=== PATIENT | male | born 1935 | race Caucasian/White ===

== ENCOUNTER 2019-09-16 18:10 | Emergency (ER) | payer MEDICARE ==
[~2019-09-16] VITALS: Ht 187.9 cm; Wt 112.1 kg
--- NOTE | 2019-09-16 18:58 | ED General ---
General Chief Complaint: Neuro-Stroke Like Symptoms Stated Complaint: TROUBLE WALKING/ACTING ABNORMAL History of Present Illness Date Seen by Provider: Sep 16, 2019 Time Seen by Provider: 18:30 Initial Comments Patient is elderly man who lives alone and is having increasing [place] over the last week unable to maneuver like it has been before. Like he has weaker overall does manage to get his meals get up and to and from the bathroom but has become weaker. Timing/Duration: 6-7 Days Severity: Moderate Associated Systoms: No Chest Pain, No Cough, No Diaphoresis, No Fever/Chills, No Headaches, No Loss of Appetite; Malaise; No Nausea/Vomiting; Shortness of Air; No Syncope; Weakness Allergies and Home Medications Allergies Coded Allergies: No Known Drug Allergies (Unverified , 08/20/14) Patient Home Medication List Home Medication List Reviewed: Yes Review of Systems Review of Systems Constitutional: No chills, No dizziness, No fever; malaise, weakness EENTM: No blurred vision, No double vision, No throat pain Respiratory: cough, orthopnea, short of breath, wheezing Cardiovascular: No chest pain, No palpitations Gastrointestinal: No abdominal pain, No constipation, No diarrhea Genitourinary: No dysuria, No frequency; incontinence Musculoskeletal: No back pain, No muscle pain; muscle weakness Skin: No change in color, No lesions Psychiatric/Neurological: Denies Anxiety, Denies Headache, Denies Numbness, Denies Tremors Past Virybyz-Ykkzpa-Madlnj Hx Past Med/Social Hx: Reviewed Nursing Past Med/Soc Hx Patient Social History Recent Foreign Travel: No Contact w/Someone Who Travel: No Physical Abuse: No Sexual Abuse: No Mistreated: No Fear: No Physical Exam Vital Signs Vital Signs - First Documented 09/16/19 18:15 Temp 37.4 Pulse 106 Resp 20 B/P (MAP) 201/94 (129) Pulse Ox 93 O2 Delivery Room Air Capillary Refill : Height, Weight, BMI Height: 6'" Weight: 245lbs. oz. 111.171603mq; BMI Method: General Appearance: No Apparent Distress, WD/WN HEENT: TMs Normal, Pharynx Normal Neck: Full Range of Motion, Normal Inspection Respiratory: Rales, Rhonci, Wheezing Cardiovascular: Irregularly Irregular, JVD, Other (edema) Gastrointestinal: Normal Bowel Sounds, Non Tender, Soft Extremity: Normal Range of Motion, Pedal Edema Neurologic/Psychiatric: Alert, Oriented x3, Normal Mood/Affect, Motor Weakness Skin: Normal Color, Warm/Dry Progress/Results/Core Measures Suspected Sepsis SIRS Temperature: Pulse: Respiratory Rate: Laboratory Tests 09/16/19 18:20: White Blood Count 12.3H Blood Pressure / Mean: Laboratory Tests 09/16/19 18:20: Creatinine 1.13, INR Comment 1.0, Platelet Count 183, Total Bilirubin 1.2H Results/Orders Lab Results Laboratory Tests Test 09/16/19 18:20 09/16/19 19:45 Range/Units White Blood Count 12.3 H 4.3-11.0 10^3/uL Red Blood Count 5.09 4.35-5.85 10^6/uL Hemoglobin 16.2 13.3-17.7 G/DL Hematocrit 49 40-54 % Mean Corpuscular Volume 95 80-99 FL Mean Corpuscular Hemoglobin 32 25-34 PG Mean Corpuscular Hemoglobin Concent 33 32-36 G/DL Red Cell Distribution Width 12.6 10.0-14.5 % Platelet Count 183 130-400 10^3/uL Mean Platelet Volume 12.3 H 7.4-10.4 FL Neutrophils (%) (Auto) 86 H 42-75 % Lymphocytes (%) (Auto) 5 L 12-44 % Monocytes (%) (Auto) 8 0-12 % Eosinophils (%) (Auto) 1 0-10 % Basophils (%) (Auto) 0 0-10 % Neutrophils # (Auto) 10.6 H 1.8-7.8 X 10^3 Lymphocytes # (Auto) 0.6 L 1.0-4.0 X 10^3 Monocytes # (Auto) 1.0 0.0-1.0 X 10^3 Eosinophils # (Auto) 0.1 0.0-0.3 10^3/uL Basophils # (Auto) 0.1 0.0-0.1 10^3/uL Neutrophils % (Manual) 83 % Lymphocytes % (Manual) 6 % Monocytes % (Manual) 8 % Eosinophils % (Manual) 0 % Basophils % (Manual) 0 % Band Neutrophils 3 % Blood Morphology Comment NORMAL Prothrombin Time 14.0 12.2-14.7 SEC INR Comment 1.0 0.8-1.4 Activated Partial Thromboplast Time 30 24-35 SEC Sodium Level 140 135-145 MMOL/L Potassium Level 4.1 3.6-5.0 MMOL/L Chloride Level 103 98-107 MMOL/L Carbon Dioxide Level 22 21-32 MMOL/L Anion Gap 15 H 5-14 MMOL/L Blood Urea Nitrogen 17 7-18 MG/DL Creatinine 1.13 0.60-1.30 MG/DL Estimat Glomerular Filtration Rate > 60 BUN/Creatinine Ratio 15 Glucose Level 122 H 70-105 MG/DL Calcium Level 9.1 8.5-10.1 MG/DL Corrected Calcium 8.8 8.5-10.1 MG/DL Total Bilirubin 1.2 H 0.1-1.0 MG/DL Aspartate Amino Transf (AST/SGOT) 19 5-34 U/L Alanine Aminotransferase (ALT/SGPT) 14 0-55 U/L Alkaline Phosphatase 108 40-136 U/L Troponin I < 0.30 <0.30 NG/ML Pro-B-Type Natriuretic Peptide 1839.0 H <75.0 PG/ML Total Protein 7.6 6.4-8.2 GM/DL Albumin 4.4 3.2-4.5 GM/DL Urine Color YELLOW Urine Clarity CLEAR Urine pH 5.5 5-9 Urine Specific [place] >1.030 1.016-1.022 Urine Protein 3+ H NEGATIVE Urine Glucose (UA) NEGATIVE NEGATIVE Urine Ketones TRACE H NEGATIVE Urine Nitrite NEGATIVE NEGATIVE Urine Bilirubin NEGATIVE NEGATIVE Urine Urobilinogen 0.2 < = 1.0 MG/DL Urine Leukocyte Esterase NEGATIVE NEGATIVE Urine RBC (Auto) 1+ H NEGATIVE Urine RBC 2-5 H /HPF Urine WBC NONE /HPF Urine Squamous Epithelial Cells 0.2 /HPF Urine Renal Epithelial Cells /HPF Urine Crystals NONE /LPF Urine Calcium Oxalate Crystals /LPF Urine Amorphous Sediment /LPF Urine Bacteria TRACE /HPF Urine Casts NONE /LPF Urine Mucus NEGATIVE /LPF Urine Culture Indicated NO My Orders Orders - YASHIRA MARTINEZ JR, MD Cbc And Manual Diff (09/16/19 18:43) Comprehensive Metabolic Panel (09/16/19 18:43) Probnp Fs (09/16/19 18:43) Ekg Tracing (09/16/19 18:43) Chest 1 View Ap/Pa Only (09/16/19 18:43) Protime With Inr (09/16/19 18:43) Partial Thromboplastin Time (09/16/19 18:43) Ct Head Wo (09/16/19 18:43) Troponin I Fs (09/16/19 18:43) Ua Culture If Indicated (09/16/19 19:31) Furosemide Injection (Lasix Injection) (09/16/19 19:45) Medications Given in ED Current Medications Medications Dose Ordered Sig/Zana Route Start Time Stop Time Status Last Admin Dose Admin Furosemide 60 mg ONCE ONCE IVP 09/16/19 19:45 09/16/19 19:46 DC 09/16/19 19:47 60 MG Vital Signs/I&O 09/16/19 18:15 Temp 37.4 Pulse 106 Resp 20 B/P (MAP) 201/94 (129) Pulse Ox 93 O2 Delivery Room Air Capillary Refill : Progress Note : Time: 20:26 Progress Note Discussed with patient and family about not taking medications since October of last year this time feels an A. fib with controlled response but still having some signs of failure to give him 60 of Lasix IV will place him on another 20 mg daily for the next 4 days with a potassium to go along with that each day will follow up with his doctor this week we'll go ahead and get his prescriptions filled back again tomorrow will return for any problems we'll try this as an outpatient but if not successful and admit him. ECG Initial ECG Impression Date: Sep 16, 2019 Initial ECG Impression Time: 18:18 Initial ECG Rate: 95 Initial ECG Rhythm: A Fib/Flutter Initial ECG Impression: Atrial Fibrillation Departure Impression Primary Impression: Atrial fibrillation Qualified Codes: I48.20 - Chronic atrial fibrillation, unspecified Additional Impression: Congestive heart failure Disposition: 01 HOME, SELF-CARE Condition: Stable Departure-Patient Inst. Referrals: ESMER ALBARADO MD (PCP) Primary Care Physician NAOMY EDWARDS MD (Family) Primary Care Physician Patient Instructions: Atrial Fibrillation, Heart Healthy Diet, Heart Failure and Atrial Fibrillation Add. Discharge Instructions: Call PCP office tomorrow and schedule appointment for this week All discharge instructions reviewed with patient and/or family. Voiced understanding. Scripts Potassium Chloride (Potassium Chloride) 20 Meq Tab.er.prt 20 MEQ PO DAILY for 7 Days Prov: YASHIRA MARTINEZ JR, MD 09/16/19 Furosemide (Lasix) 20 Mg Tablet 20 MG PO DAILY for 7 Days, #7 TAB Prov: YASHIRA MARTINEZ JR, MD 09/16/19 YASHIRA MARTINEZ JR, MD Sep 16, 2019 18:58
[2019-09-16 18:59] LABS: BASOPHILS # (AUTO) 0.1 10^3/uL (0.0-0.1); BASOPHILS % (AUTO) 0 % (0-10); EOSINOPHILS # (AUTO) 0.1 10^3/uL (0.0-0.3); EOSINOPHILS % (AUTO) 1 % (0-10); HEMATOCRIT 49 % (40-54); HEMOGLOBIN 16.2 G/DL (13.3-17.7); LYMPHOCYTES # (AUTO) 0.6 X 10^3 (1.0-4.0); LYMPHOCYTES % (AUTO) 5 % (12-44); MEAN CORPUSCULAR HEMOGLOBIN 32 PG (25-34); MEAN CORPUSCULAR HGB CONC 33 G/DL (32-36); MEAN CORPUSCULAR VOLUME 95 FL (80-99); MEAN PLATELET VOLUME 12.3 FL (7.4-10.4); MONOCYTES % (AUTO) 8 % (0-12); NEUTROPHILS # (AUTO) 10.6 X 10^3 (1.8-7.8); NEUTROPHILS % (AUTO) 86 % (42-75); PLATELET COUNT 183 10^3/uL (130-400); RED CELL DISTRIBUTION WIDTH 12.6 % (10.0-14.5); WHITE BLOOD COUNT 12.3 10^3/uL (4.3-11.0)
[2019-09-16 19:22] LABS: ALANINE AMINOTRANSFERASE 14 U/L (0-55); ALBUMIN 4.4 GM/DL (3.2-4.5); ALKALINE PHOSPHATASE 108 U/L (40-136); BILIRUBIN,TOTAL 1.2 MG/DL (0.1-1.0); BUN/CREATININE RATIO 15; CALCIUM 9.1 MG/DL (8.5-10.1); CARBON DIOXIDE 22 MMOL/L (21-32); CHLORIDE 103 MMOL/L (98-107); CREATININE SERUM 1.13 MG/DL (0.60-1.30); GFR ESTIMATED > 60; GLUCOSE 122 MG/DL (70-105); POTASSIUM 4.1 MMOL/L (3.6-5.0); SODIUM 140 MMOL/L (135-145); TOTAL PROTEIN 7.6 GM/DL (6.4-8.2)
[2019-09-16 19:26] LABS: BAND NEUTROPHILS 3 %; BASOPHILS % (MANUAL) 0 %; EOSINOPHILS % (MANUAL) 0 %; LYMPHOCYTES % (MANUAL) 6 %; MONOCYTES % (MANUAL) 8 %; NEUTROPHILS % (MANUAL) 83 %
[2019-09-16 19:27] LABS: RBC MORPH NORMAL
--- NOTE | 2019-09-16 19:27 | Diagnostic Imaging Report ---
PROCEDURE: CT head without contrast. TECHNIQUE: Multiple contiguous axial images were obtained through the brain without the use of intravenous contrast. Auto Exposure Controls were utilized during the CT exam to meet ALARA standards for radiation dose reduction. INDICATION: Cough. Nasal drainage. COMPARISON: None. FINDINGS: No intracranial hemorrhage, mass effect, hydrocephalus or extra-axial fluid collections. Advanced generalized cerebral and cerebellar parenchymal volume loss. Advanced leukoaraiosis. The visualized paranasal sinuses and mastoids are clear. No acute osseous findings. IMPRESSION: No acute intracranial CT findings. Dictated by: Dictated on workstation # [id number]
--- NOTE | 2019-09-16 19:29 | Diagnostic Imaging Report ---
EXAM: CHEST 1 VIEW AP/PA ONLY INDICATION: Cough. Nasal drainage COMPARISON: None. FINDINGS: Cardiomegaly. Normal central pulmonary vascularity. No focal pulmonary opacity, pleural effusion or pneumothorax. Chronic right rib fracture. Calcified aorta. IMPRESSION: Cardiomegaly. No acute cardiopulmonary findings. Dictated by: Dictated on workstation # [id number]
[2019-09-16] MEDS ORDERED: FUROSEMIDE 40 MG/4 ML INJ (LASIX) IVP ONE (19:45)
[2019-09-16 19:57] LABS: BACTERIA,URINE TRACE /HPF; BILIRUBIN,URINE NEGATIVE (NEGATIVE); CLARITY,URINE CLEAR; COLOR,URINE YELLOW; GLUCOSE, URINE (UA) NEGATIVE (NEGATIVE); KETONES,URINE TRACE (NEGATIVE); LEUKOCYTE ESTERASE ,URINE NEGATIVE (NEGATIVE); NITRITE,URINE NEGATIVE (NEGATIVE); PH,URINE 5.5 (5-9); PROTEIN,URINE 3+ (NEGATIVE); SQUAMOUS EPITHELIAL CELL,UR 0.2 /HPF
[2019-09-16] MEDS ORDERED: FURO-125 PO (20:29)
[2019-09-16] MEDS ORDERED: POTA20TA15 PO (20:29)
[2019-09-16 20:32] VITALS: BP 180/100
== END 2019-09-16 20:32 | disposition home or self-care (01) ==
LOC: EDUNIT# 18:10 → ER FS 18:12
DX: I48.91 Unspecified atrial fibrillation (principal); I50.9 Heart failure, unspecified
CPT/HCPCS: 36415; 70450; 71045; 80053; 81000; 83880; 84484; 85007; 85027; 85610; 85730; 93005; 96374

== ENCOUNTER 2020-08-04 11:40 | Emergency (ER) | payer MEDICARE, OTHER ==
[~2020-08-04 11:40] MED LIST: FURO-125 PO; POTA20TA15 PO
[2020-08-04] MEDS ORDERED: LACTATED RINGERS 1,000 ML IV SCH (12:00)
--- NOTE | 2020-08-04 12:03 | ED General ---
General Chief Complaint: General Problems/Pain Stated Complaint: GEN WEAKNESS History of Present Illness Date Seen by Provider: Aug 04, 2020 Time Seen by Provider: 11:55 Initial Comments 84-year-old male presents by private vehicle with complaint of weakness. Patient without any acute concerns. Otherwise he is without complaint of recent illness, fever or chills, chest pain, palpitations, shortness of air, cough or any difficulty breathing. Allergies and Home Medications Allergies Coded Allergies: No Known Drug Allergies (Unverified , 08/20/14) Home Medications Furosemide 20 Mg Tablet, 20 MG PO DAILY Prescribed by: YASHIRA MARTINEZ on 09/16/192028 Potassium Chloride 20 Meq Tab.er.prt, 20 MEQ PO DAILY Prescribed by: YASHIRA MARTINEZ on 09/16/192028 Patient Home Medication List Home Medication List Reviewed: Yes Review of Systems Review of Systems Constitutional: see HPI; No dizziness, No fever; malaise, weakness EENTM: no symptoms reported Respiratory: No cough, No hemoptysis, No orthopnea, No short of breath Cardiovascular: No chest pain, No edema, No palpitations, No syncope Gastrointestinal: No abdominal pain, No constipation, No loss of appetite, No nausea, No vomiting Musculoskeletal: No back pain, No joint pain Skin: No change in color, No rash Psychiatric/Neurological: Denies Headache, Denies Numbness, Denies Paresthesia; Weakness Past Qeaszqw-Jnhfhc-Nmnaex Hx Past Med/Social Hx: Reviewed Nursing Past Med/Soc Hx Patient Social History Alcohol Use: Occasionally Uses Number of Drinks Today: AA Alcohol Beverage of Choice: Beer Recreational Drug Use: No Smoking Status: Never a Smoker 2nd Hand Smoke Exposure: No Recent Hopitalizations: No Seasonal Allergies Seasonal Allergies: No Past Medical History Surgeries: Yes (carotid ) Orthopedic Respiratory: No Cardiac: Yes Atrial Fibrillation, Hypertension Neurological: Yes Stroke Genitourinary: No Gastrointestinal: No Musculoskeletal: No Endocrine: No HEENT: No Cancer: No Psychosocial: No Integumentary: No Physical Exam Vital Signs Vital Signs - First Documented 08/04/20 11:57 Temp 36.4 Pulse 84 Resp 18 B/P (MAP) 111/74 (86) Pulse Ox 100 Capillary Refill : Height, Weight, BMI Height: 6'" Weight: 245lbs. oz. 111.571948uu; 31.00 BMI Method: General Appearance: No Apparent Distress, WD/WN HEENT: PERRL/EOMI, Normal ENT Inspection (except dry mucous membranes) Neck: Normal Inspection, Non Tender, Supple Respiratory: Chest Non Tender, Lungs Clear, Normal Breath Sounds, No Accessory Muscle Use, No Respiratory Distress Cardiovascular: Regular Rate, Rhythm, No Edema, No Gallop, No JVD, No Murmur, Normal Peripheral Pulses Gastrointestinal: Non Tender, Soft Back: No CVA Tenderness, No Vertebral Tenderness Extremity: Normal Capillary Refill, Normal Inspection, Normal Range of Motion, Non Tender, No Calf Tenderness Neurologic/Psychiatric: Alert, Oriented x3, No Motor/Sensory Deficits, Normal Mood/Affect, housing inspectors II-XII Norm as Tested Skin: Normal Color, Warm/Dry Focused Exam Lactate Level 08/04/20 12:00: Lactic Acid Level 1.98 Lactic Acid Level Laboratory Tests Test 08/04/20 12:00 Lactic Acid Level 1.98 MMOL/L (0.50-2.00) Progress/Results/Core Measures Suspected Sepsis SIRS Temperature: Pulse: Respiratory Rate: Laboratory Tests 08/04/20 11:55: White Blood Count 7.1 Blood Pressure / Mean: 08/04/20 12:00: Lactic Acid Level 1.98 Laboratory Tests 08/04/20 11:55: Creatinine 1.47H, Platelet Count 254, Total Bilirubin 1.0 Results/Orders Lab Results Laboratory Tests Test 08/04/20 11:55 08/04/20 12:00 Range/Units White Blood Count 7.1 4.3-11.0 10^3/uL Red Blood Count 5.53 4.35-5.85 10^6/uL Hemoglobin 17.4 13.3-17.7 G/DL Hematocrit 51 40-54 % Mean Corpuscular Volume 93 80-99 FL Mean Corpuscular Hemoglobin 31 25-34 PG Mean Corpuscular Hemoglobin Concent 34 32-36 G/DL Red Cell Distribution Width 12.9 10.0-14.5 % Platelet Count 254 130-400 10^3/uL Mean Platelet Volume 11.1 H 7.4-10.4 FL Immature Granulocyte % (Auto) 1 % Neutrophils (%) (Auto) 75 42-75 % Lymphocytes (%) (Auto) 15 12-44 % Monocytes (%) (Auto) 9 0-12 % Eosinophils (%) (Auto) 0 0-10 % Basophils (%) (Auto) 0 0-10 % Neutrophils # (Auto) 5.3 1.8-7.8 X 10^3 Lymphocytes # (Auto) 1.0 1.0-4.0 X 10^3 Monocytes # (Auto) 0.7 0.0-1.0 X 10^3 Eosinophils # (Auto) 0.0 0.0-0.3 10^3/uL Basophils # (Auto) 0.0 0.0-0.1 10^3/uL Immature Granulocyte # (Auto) 0.0 0.0-0.1 10^3/uL Urine Color DARK YELLOW Urine Clarity CLEAR Urine pH 5.5 5-9 Urine Specific [place] 1.025 H 1.016-1.022 Urine Protein 2+ H NEGATIVE Urine Glucose (UA) NEGATIVE NEGATIVE Urine Ketones TRACE H NEGATIVE Urine Nitrite NEGATIVE NEGATIVE Urine Bilirubin 1+ H NEGATIVE Urine Urobilinogen 0.2 < = 1.0 MG/DL Urine Leukocyte Esterase NEGATIVE NEGATIVE Urine RBC (Auto) TRACE H NEGATIVE Urine RBC RARE /HPF Urine WBC NONE /HPF Urine Squamous Epithelial Cells 0-2 /HPF Urine Crystals NONE /LPF Urine Bacteria TRACE /HPF Urine Casts NONE /LPF Urine Mucus NEGATIVE /LPF Urine Culture Indicated NO Sodium Level 137 135-145 MMOL/L Potassium Level 4.3 3.6-5.0 MMOL/L Chloride Level 100 98-107 MMOL/L Carbon Dioxide Level 22 21-32 MMOL/L Anion Gap 15 H 5-14 MMOL/L Blood Urea Nitrogen 25 H 7-18 MG/DL Creatinine 1.47 H 0.60-1.30 MG/DL Estimat Glomerular Filtration Rate 45 BUN/Creatinine Ratio 17 Glucose Level 116 H 70-105 MG/DL Calcium Level 9.4 8.5-10.1 MG/DL Corrected Calcium 9.8 8.5-10.1 MG/DL Total Bilirubin 1.0 0.1-1.0 MG/DL Aspartate Amino Transf (AST/SGOT) 36 H 5-34 U/L Alanine Aminotransferase (ALT/SGPT) 36 0-55 U/L Alkaline Phosphatase 98 40-136 U/L Troponin I < 0.30 <0.30 NG/ML Total Protein 7.6 6.4-8.2 GM/DL Albumin 3.5 3.2-4.5 GM/DL Serum Alcohol < 10 <10 MG/DL Lactic Acid Level 1.98 0.50-2.00 MMOL/L My Orders Orders - EUSEBIOKAREN L DO Ed Iv/Invasive Line Start (08/04/20 11:58) Ekg Tracing (08/04/20 11:58) Chest 1 View Ap/Pa Only (08/04/20 11:58) Troponin I Fs (08/04/20 11:58) Urinalysis (08/04/20 11:58) Cbc With Automated Diff (08/04/20 11:58) Comprehensive Metabolic Panel (08/04/20 11:58) Alcohol (08/04/20 11:58) Lactic Acid Analyzer (08/04/20 11:58) Ct Head Wo (08/04/20 11:58) Lactated Ringers (Lr 1000 Ml Iv Solution (08/04/20 12:00) Vital Signs/I&O 08/04/20 08/04/20 11:57 14:09 Temp 36.4 Pulse 84 74 Resp 18 20 B/P (MAP) 111/74 (86) 127/82 Pulse Ox 100 100 Capillary Refill : Progress Note : Progress Note 1350h spoke to patients daughter, Ana Head who states that patient has been a little more confused for the past 2 days and walking slower than normal. No concern of illness, fever or chills, cough or shortness of air. She thinks he is not taking his medication regularly. Do not want to pursue transitioning to NH care at this time.....feels it would be pre-mature. He lives alone, but she lives down the street from him and is able to see him regularly to check on him. ECG Initial ECG Impression Date: Aug 04, 2020 Initial ECG Impression Time: 12:10 Initial ECG Rate: 80 Initial ECG Intervals: Normal Initial ECG Impression: Atrial Fibrillation Initial ECG Comparisson: No Previous ECG Available Diagnostic Imaging Diagonstic Imaging: CT Comments Date of Exam:08/04/20 CHEST 1 VIEW AP/PA ONLY EXAM: CHEST 1 VIEW AP/PA ONLY INDICATION: Weakness. Altered mental status. COMPARISON: Chest radiograph 09/16/2019. FINDINGS: Cardiomegaly with normal central pulmonary vascularity. Mild atelectasis or infiltrate in the left lung base. No pleural effusion or pneumothorax. IMPRESSION: 1. Stable cardiomegaly with normal central pulmonary vascularity. 2. Mild atelectasis or infiltrate left lung base. Dictated on workstation # [id number] Dict: 08/04/20 1305 Trans: 08/04/20 1320 [id number] Interpreted by: FLY VIGIL MD Electronically signed by: INDICATION: Weakness. Altered mental status. COMPARISON: Chest radiograph 09/16/2019. FINDINGS: Moderate generalized cerebral and cerebellar parenchymal volume loss. Advanced low-attenuation changes throughout the deep white matter are greatest in the right frontal lobe, stable. No CT evidence of acute territorial infarction. No intracranial hemorrhage, mass effect, hydrocephalus or extra-axial fluid collections. Osseous structures are intact. The paranasal sinuses and mastoids are unremarkable. IMPRESSION: No acute intracranial CT findings. Chronic findings as above Dictated on workstation # [id number] Dict: 08/04/20 1249 Trans: 08/04/20 1254 [id number] Interpreted by: FLY VIGIL MD Electronically signed by: Departure Impression Primary Impression: Weakness Additional Impression: Dehydration Disposition: 01 HOME, SELF-CARE Condition: Stable Departure-Patient Inst. Referrals: NO,LOCAL PHYSICIAN (PCP/Family) Primary Care Physician Patient Instructions: Dehydration, Adult (DC), Generalized Weakness (DC) Add. Discharge Instructions: Followo up with your Primary Care Doctor in 1 week, sooner if not improving. Follow up in the ER if your symptoms progress and you are unable to see your Primary Doctor. All discharge instructions reviewed with patient and/or family. Voiced understanding. KAREN KAPLAN DO Aug 04, 2020 12:03
[2020-08-04 12:10] LABS: BASOPHILS % (AUTO) 0 % (0-10); EOSINOPHILS % (AUTO) 0 % (0-10); HEMATOCRIT 51 % (40-54); HEMOGLOBIN 17.4 G/DL (13.3-17.7); LYMPHOCYTES % (AUTO) 15 % (12-44); MEAN CORPUSCULAR HEMOGLOBIN 31 PG (25-34); MEAN CORPUSCULAR HGB CONC 34 G/DL (32-36); MEAN CORPUSCULAR VOLUME 93 FL (80-99); MEAN PLATELET VOLUME 11.1 FL (7.4-10.4); MONOCYTES % (AUTO) 9 % (0-12); NEUTROPHILS % (AUTO) 75 % (42-75); PLATELET COUNT 254 10^3/uL (130-400); WHITE BLOOD COUNT 7.1 10^3/uL (4.3-11.0)
[2020-08-04 12:11] LABS: MONOCYTES # (AUTO) 0.7 X 10^3 (0.0-1.0); NEUTROPHILS # (AUTO) 5.3 X 10^3 (1.8-7.8)
[2020-08-04 12:23] LABS: CLARITY,URINE CLEAR; COLOR,URINE DARK YELLOW; GLUCOSE, URINE (UA) NEGATIVE (NEGATIVE); KETONES,URINE TRACE (NEGATIVE); NITRITE,URINE NEGATIVE (NEGATIVE); PH,URINE 5.5 (5-9); PROTEIN,URINE 2+ (NEGATIVE)
[2020-08-04 12:24] LABS: BACTERIA,URINE TRACE /HPF; BILIRUBIN,URINE 1+ (NEGATIVE); LEUKOCYTE ESTERASE ,URINE NEGATIVE (NEGATIVE); RBC,URINE RARE /HPF; SQUAMOUS EPITHELIAL CELL,UR 0-2 /HPF
[2020-08-04 12:28] LABS: BUN/CREATININE RATIO 17; CALCIUM 9.4 MG/DL (8.5-10.1); CARBON DIOXIDE 22 MMOL/L (21-32); CHLORIDE 100 MMOL/L (98-107); CREATININE SERUM 1.47 MG/DL (0.60-1.30); GFR ESTIMATED 45; GLUCOSE 116 MG/DL (70-105); POTASSIUM 4.3 MMOL/L (3.6-5.0); SODIUM 137 MMOL/L (135-145)
[2020-08-04 12:29] LABS: ALANINE AMINOTRANSFERASE 36 U/L (0-55); ALBUMIN 3.5 GM/DL (3.2-4.5); ALKALINE PHOSPHATASE 98 U/L (40-136); TOTAL PROTEIN 7.6 GM/DL (6.4-8.2)
--- NOTE | 2020-08-04 12:55 | Diagnostic Imaging Report ---
PROCEDURE: CT head without contrast. TECHNIQUE: Multiple contiguous axial images were obtained through the brain without the use of intravenous contrast. Auto Exposure Controls were utilized during the CT exam to meet ALARA standards for radiation dose reduction. INDICATION: Weakness. Altered mental status. COMPARISON: Chest radiograph 09/16/2019. FINDINGS: Moderate generalized cerebral and cerebellar parenchymal volume loss. Advanced low-attenuation changes throughout the deep white matter are greatest in the right frontal lobe, stable. No CT evidence of acute territorial infarction. No intracranial hemorrhage, mass effect, hydrocephalus or extra-axial fluid collections. Osseous structures are intact. The paranasal sinuses and mastoids are unremarkable. IMPRESSION: No acute intracranial CT findings. Chronic findings as above Dictated by: Dictated on workstation # [id number]
--- NOTE | 2020-08-04 13:26 | Diagnostic Imaging Report ---
EXAM: CHEST 1 VIEW AP/PA ONLY INDICATION: Weakness. Altered mental status. COMPARISON: Chest radiograph 09/16/2019. FINDINGS: Cardiomegaly with normal central pulmonary vascularity. Mild atelectasis or infiltrate in the left lung base. No pleural effusion or pneumothorax. IMPRESSION: 1. Stable cardiomegaly with normal central pulmonary vascularity. 2. Mild atelectasis or infiltrate left lung base. Dictated by: Dictated on workstation # [id number]
[2020-08-04 14:09] VITALS: BP 127/82
== END 2020-08-04 14:11 | disposition home or self-care (01) ==
LOC: EDUNIT# 11:40 → ER FS 11:41
DX: R53.1 Weakness (principal); E86.0 Dehydration
CPT/HCPCS: 36415; 70450; 71045; 80053; 81000; 83605; 84484; 85025; 99284; G0480; 80320

== ENCOUNTER 2020-08-05 20:46 | Observation (INO) | payer MEDICARE ==
[~2020-08-05] VITALS: Ht 185 cm; Wt 106.0 kg
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
[2020-08-05] MEDS ORDERED: NS IV 500 ML 500 ML IV ONE (22:00)
[2020-08-05] MEDS ORDERED: NS 100 ML (IVPB) BAG IV ONE (22:00)
[2020-08-05] MEDS ORDERED: CATHETER FLUSH 10 ML SYR IV PRN (22:00)
[2020-08-05] MEDS ORDERED: IOHEXOL 300 MG/ML 50 ML (OMNIPAQUE 300) VIAL IV ONE (22:00)
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
[2020-08-05 22:16] LABS: BASOPHILS % (AUTO) 0 % (0-10); EOSINOPHILS % (AUTO) 0 % (0-10); HEMATOCRIT 48 % (40-54); LYMPHOCYTES % (AUTO) 9 % (12-44); MEAN CORPUSCULAR HEMOGLOBIN 31 PG (25-34); MEAN CORPUSCULAR HGB CONC 34 G/DL (32-36); MEAN CORPUSCULAR VOLUME 94 FL (80-99); MONOCYTES # (AUTO) 0.7 X 10^3 (0.0-1.0); MONOCYTES % (AUTO) 7 % (0-12); NEUTROPHILS # (AUTO) 8.8 X 10^3 (1.8-7.8); NEUTROPHILS % (AUTO) 83 % (42-75); PLATELET COUNT 285 10^3/uL (130-400); WHITE BLOOD COUNT 10.6 10^3/uL (4.3-11.0)
[2020-08-05 22:25] LABS: INR 1.6 (0.8-1.4); PROTHROMBIN TIME PATIENT 19.5 SEC (12.2-14.7)
[2020-08-05 22:30] LABS: ALBUMIN 3.2 GM/DL (3.2-4.5); BILIRUBIN,TOTAL 0.8 MG/DL (0.1-1.0); CALCIUM 9.2 MG/DL (8.5-10.1); CREATININE SERUM 1.27 MG/DL (0.60-1.30); POTASSIUM 4.2 MMOL/L (3.6-5.0); TOTAL PROTEIN 7.1 GM/DL (6.4-8.2)
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
[2020-08-06 02:23] VITALS: BP 147/87
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
[2020-08-06] MEDS: LACTATED RINGERS 1,000 ML IV SCH ×2 (02:49→11:18)
[2020-08-06] MEDS: KETOROLAC 30 MG/ML VIAL IVP PRN ×2 (02:49→16:11)
[2020-08-06 04:00] VITALS: BP 150/85
[2020-08-06] MEDS ORDERED: FLU QUAD HIGH DOSE 240 MCG/0.7 ML 2020-21 (FLUZONE) IM ONE (06:45)
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
[2020-08-06 12:00] VITALS: BP 137/88
--- NOTE | 2020-08-06 12:30 | NUR ---
DR. PETERSEN ON FLOOR AND INFORMED THAT PATIENT SHOULD HAVE HAD SLING FROM ED. INFORMED IF DAUGHTER CAN TAKE PATIENT AND GET HIM IN WITH OUTPATIENT ORTHO. THIS RN APPLIED SLING TO PATIENT. THIS RN PHONED DAUGHTER AND THERE WAS NO ANSWER. THIS RN TO TRY AGAIN LATER.
[2020-08-06] MEDS ORDERED: RIVA10TA PO (12:45)
[2020-08-06] MEDS ORDERED: GABA-486 PO (12:45)
[2020-08-06] MEDS ORDERED: MTP100TCR PO (12:45)
[2020-08-06] MEDS ORDERED: LISI10TA2 PO (12:45)
--- NOTE | 2020-08-06 13:30 | NUR ---
THIS RN PHONED DAUGHTER TO SEE IF COULD TAKE PATIENT AND LOOK AFTER AND GET HIM IN WITH ORTHO OUTPATIENT. DAUGHTER SAID SHE COULD. THIS RN INFORMED WOULD NOTIFY SOON ORDERS ARE IN PLACE.
--- NOTE | 2020-08-06 15:36 | Discharge Inst-Surgical ---
Discharge Inst-Surgical Depart Medication/Instructions New, Converted or Re-Newed RX: Other (Take tylenol and Ibuprofen at home for pain) Patient Instructions Follow up Appt: Make appointment for 1 week; with Orthopedic surgeon of choice. Instructions: No lifting greater than 20 pounds. No strenuous activity. May shower in 24 hours, no tub bath or soaking. Use incentive spirometer at home as directed. No Smoking KEEP LEFT ARM IN SLING AT ALL TIMES EXCEPT TO SHOWER. Skin/Wound Care: Keep chest wound clean and dry, cover with band-aid. Symptoms to Report: Appetite Changes, Extremity Discoloration, Numbness/Tingling, Swelling Increased, Bleeding Excessive, Eyesight Changes, Pain Increased, Urine Color Change, Constipation(Persistent), Fever over 101 degree F, Pain/Pressure in chest, Urinating Difficulty, Cough Up/Vomit Blood, Heart Beat Irreg/Pounding, Pain/Pressure in jaw, Cramps in feet or legs, Lightheadedness, Pain/Pressure in shoulder, Diarrhea(Persistent), Memory Changes Suddenly, Questions/Concerns, Weight gain consecutive days, Dizziness/Fainting, Nausea/Vomiting, Shortness of Breath, Weight gain over 2 pounds If questions or concerns contact your physician Or seek help at emergency department. Activity Activity as Tolerated: Yes Activity Instructions: Avoid Pulling & Pushing Driving Instructions: No Driving/Refer to Dr. Hernandez Discharge Diet: No Restrictions Diet After 24 Hours: Clear Liquid if Nauseous If Any Problems/Questions/Issu: Contact Your Physician, Go to Emergency Room Skin/Wound Care Infection Signs and Symptoms: Increased Redness, Foul Odor of Wound, Increased Drainage, Skin Itchy or Has a Rash, Increased Swelling, Temperature Above 101 F Bathing Instructions: RAFAEL Flores DO Aug 06, 2020 15:36
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
--- NOTE | 2020-08-06 15:44 | NUR ---
THIS RN NOTIFIED DAUGHTER THAT HAS PUT ORDERS IN AND TO LET ED KNOW WHEN ARRIVE FOR PICKUP.
[2020-08-06 16:00] VITALS: BP 157/79
[2020-08-06 18:03] VITALS: BP 157/79
== END 2020-08-06 18:05 | disposition home or self-care (01) ==
LOC: EDUNIT# 20:46 → ER FS 20:47 → 4TH 08-06 01:30 → INTOOBSV 08-06 01:30
PROVIDERS: ADMIT Surgery; ATTEND Surgery
DX: S21.132A Puncture wound without foreign body of left front wall of thorax without penetration into thoracic cavity, initial encounter (principal); S42.292A Other displaced fracture of upper end of left humerus, initial encounter for closed fracture; I10 Essential (primary) hypertension; I48.91 Unspecified atrial fibrillation; Z79.899 Other long term (current) drug therapy; W34.00XA Accidental discharge from unspecified firearms or gun, initial encounter; Z20.828 Contact with and (suspected) exposure to other viral communicable diseases
CPT/HCPCS: 36415; 70450; 71045; 71260; 72125; 73060; 80053; 85025; 85610; 85730; 99284; G0378; U0002; 87635

== ENCOUNTER → 2020-08-22 | Outpatient (CLI) | payer MEDICARE ==
[~2020-08-22] MED LIST changes: +GABA-486 PO; +LISI10TA2 PO; +MTP100TCR PO; +RIVA10TA PO
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
== END ==
LOC: RAD FS 10:32
PROVIDERS: ATTEND Nurse Practitioner
DX: S42.352D Displaced comminuted fracture of shaft of humerus, left arm, subsequent encounter for fracture with routine healing (principal)
CPT/HCPCS: 73060

== ENCOUNTER → 2020-11-14 | Outpatient (CLI) | payer MEDICARE ==
[~2020-11-14] MED LIST changes: -LISI10TA2 PO; +LISI10TA25 PO
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
== END ==
LOC: RAD FS 15:10
PROVIDERS: ATTEND Nurse Practitioner
DX: S42.352D Displaced comminuted fracture of shaft of humerus, left arm, subsequent encounter for fracture with routine healing (principal); M19.012 Primary osteoarthritis, left shoulder; X58.XXXD Exposure to other specified factors, subsequent encounter
CPT/HCPCS: 73030; 73060

== ENCOUNTER 2020-12-25 11:33 | Emergency (ER) | payer MEDICARE ==
[~2020-12-25] VITALS: Ht 187.9 cm; Wt 112.9 kg
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
[2020-12-25] MEDS ORDERED: AMOX-358 PO (12:00)
[2020-12-25] MEDS ORDERED: TETANUS,DIPTH,PERTUSS P/F (BOOSTRIX) 0.5 ML VIAL IM ONE (12:00)
[2020-12-25] MEDS ORDERED: RABIES IMMUNE GLOBULIN 300 UNIT/ML 5 ML (HyperRAB) IM ONE (12:00)
[2020-12-25] MEDS ORDERED: RABIES VACCINE HUMAN DIPL CELL 1 ML/2.5 UNITS SYR IM ONE (12:00)
[2020-12-25 12:40] VITALS: BP 144/81
== END 2020-12-25 12:40 | disposition home or self-care (01) ==
LOC: EDUNIT# 11:33 → ER FS 11:34
DX: S61.451A Open bite of right hand, initial encounter (principal); I48.91 Unspecified atrial fibrillation; I10 Essential (primary) hypertension; Z86.73 Personal history of transient ischemic attack (TIA), and cerebral infarction without residual deficits; Z23 Encounter for immunization; Z79.899 Other long term (current) drug therapy; Z79.01 Long term (current) use of anticoagulants; W55.51XA Bitten by raccoon, initial encounter
CPT/HCPCS: 99283; A6223; 90375; 90675; 90715

== ENCOUNTER 2020-12-28 10:49 | Outpatient (RCR) | payer MEDICARE ==
[~2020-12-28] VITALS: Ht 187.9 cm; Wt 112.9 kg
[~2020-12-28 10:49] MED LIST changes: +AMOX-358 PO
[2020-12-28 11:04] VITALS: BP 183/83
[2020-12-28] MEDS ORDERED: RABIES VACCINE HUMAN DIPL CELL 1 ML/2.5 UNITS SYR INJ ONE (11:15)
[2021-01-01] MEDS ORDERED: RABIES VACCINE HUMAN DIPL CELL 1 ML/2.5 UNITS SYR INJ ONE (11:15)
[2021-01-08 10:40] VITALS: BP 183/83
[2021-01-08] MEDS ORDERED: RABIES VACCINE HUMAN DIPL CELL 1 ML/2.5 UNITS SYR INJ ONE (11:15)
[2021-01-22 10:32] VITALS: BP 183/83
[2021-01-22] MEDS ORDERED: RABIES VACCINE HUMAN DIPL CELL 1 ML/2.5 UNITS SYR INJ ONE (11:15)
== END 2021-03-28 | disposition home or self-care (01) ==
LOC: SDC 10:49
PROVIDERS: ATTEND Emergency Medicine
DX: Z29.14 Encounter for prophylactic rabies immune globulin (principal); Z20.3 Contact with and (suspected) exposure to rabies; W55.51XA Bitten by raccoon, initial encounter
CPT/HCPCS: 90471 ×2; G0378 ×2; 90675; 96372

== ENCOUNTER 2021-09-10 13:53 | Emergency (ER) | payer MEDICARE ==
[~2021-09-10] VITALS: Ht 187.9 cm; Wt 113.0 kg
[~2021-09-10 13:53] MED LIST changes: +POTA-179 PO; -POTA20TA15 PO
[2021-09-10 14:10] LABS: BASOPHILS % (AUTO) 1 % (0-10); EOSINOPHILS % (AUTO) 0 % (0-10); HEMATOCRIT 37 % (40-54); HEMOGLOBIN 12.2 g/dL (13.3-17.7); LYMPHOCYTES # (AUTO) 0.4 X 10^3 (1.0-4.0); LYMPHOCYTES % (AUTO) 5 % (12-44); MEAN CORPUSCULAR HEMOGLOBIN 30 pg (25-34); MEAN CORPUSCULAR HGB CONC 33 g/dL (32-36); MEAN CORPUSCULAR VOLUME 91 fL (80-99); MEAN PLATELET VOLUME 11.6 fL (9.0-12.2); MONOCYTES # (AUTO) 0.8 X 10^3 (0.0-1.0); MONOCYTES % (AUTO) 10 % (0-12); NEUTROPHILS # (AUTO) 6.8 X 10^3 (1.8-7.8); NEUTROPHILS % (AUTO) 84 % (42-75); PLATELET COUNT 173 10^3/uL (130-400); WHITE BLOOD COUNT 8.2 10^3/uL (4.3-11.0)
[2021-09-10] MEDS ORDERED: cefTRIAXone 1,000 MG VIAL IV ONE (14:15)
[2021-09-10 14:25] LABS: BUN/CREATININE RATIO 19; CARBON DIOXIDE 21 MMOL/L (21-32); CHLORIDE 106 MMOL/L (98-107); CREATININE SERUM 1.08 MG/DL (0.60-1.30); GFR ESTIMATED 65; GLUCOSE 120 MG/DL (70-105); MAGNESIUM 1.8 MG/DL (1.6-2.4); POTASSIUM 4.3 MMOL/L (3.6-5.0); SODIUM 138 MMOL/L (135-145)
[2021-09-10 14:26] LABS: ALANINE AMINOTRANSFERASE 17 U/L (0-55); ALKALINE PHOSPHATASE 141 U/L (40-136); BILIRUBIN,TOTAL 1.8 MG/DL (0.1-1.0); TOTAL PROTEIN 7.2 GM/DL (6.4-8.2)
--- NOTE | 2021-09-10 14:35 | Diagnostic Imaging Report ---
INDICATION: Fever and confusion. TECHNIQUE: Single-view chest at 02:10 p.m. CORRELATION STUDY: 08/05/2020. FINDINGS: Heart size is enlarged. Calcification of the aortic arch. Vasculature is slightly increased. Lung murphy with slightly increased markings at the lung bases but without definitive consolidating infiltrate. IMPRESSION: 1. Cardiac enlargement and borderline vasculature. No definitive pulmonary infiltrate to suggests pneumonia. Dictated by: Dictated on workstation # [id number]
[2021-09-10 15:01] LABS: LYMPHOCYTES % (MANUAL) 12 %; MONOCYTES % (MANUAL) 9 %; NEUTROPHILS % (MANUAL) 79 %
[2021-09-10 15:27] LABS: BACTERIA,URINE TRACE /HPF; BILIRUBIN,URINE NEGATIVE (NEGATIVE); CLARITY,URINE CLEAR; COLOR,URINE YELLOW; GLUCOSE, URINE (UA) NEGATIVE (NEGATIVE); KETONES,URINE NEGATIVE (NEGATIVE); LEUKOCYTE ESTERASE ,URINE NEGATIVE (NEGATIVE); NITRITE,URINE NEGATIVE (NEGATIVE); PH,URINE 5.5 (5-9); PROTEIN,URINE 2+ (NEGATIVE)
--- NOTE | 2021-09-10 15:32 | ED General ---
General Chief Complaint: Fever-Adult/Adol Stated Complaint: AMS Nursing Triage Note: Patient brought to the ED by EMS for chief complaint of disorientation and fever. Per EMS, patient lives with his daughter; daughter states patient woke this morning not acting normally, temperature 101 for EMS. Patient has dementia, oriented to person and place. Patient states he has no complaints and is unsure why he was brought to the ED today. Source of Information: Patient Exam Limitations: No Limitations History of Present Illness Date Seen by Provider: Sep 10, 2021 Time Seen by Provider: 14:15 Initial Comments Patient is an 85-year-old male with history of dementia who lives at home by himself who presents with increased confusion fever 101. Patient is alert and oriented to person and place only. He denies current symptoms and is unsure why he is in the emergency department. Feeling hyper state he is more confused than baseline. Patient is otherwise alert functional and is able to dress himself and still drives. He does have a history of routine alcohol use Timing/Duration: 1-3 Hours Severity: Mild Modifying Factors: improves with Other Associated Systoms: Other Allergies and Home Medications Allergies Coded Allergies: No Known Drug Allergies (Unverified , 08/20/14) Patient Home Medication List Home Medication List Reviewed: Yes Amoxicillin/Potassium Clav (Augmentin 875-125 Tablet) 1 Each Tablet, 1 EACH PO BID Prescribed by: AMBERLY OWENS on 12/25/201199 Furosemide (Lasix) 20 Mg Tablet, 20 MG PO DAILY Prescribed by: YASHIRA MARTINEZ on 09/16/192028 Gabapentin (Gabapentin) 100 Mg Capsule, 100 MG PO Q8H, (Reported) Entered as Reported by: LUCIANA RIVERA on 08/06/20 124 Lisinopril (Lisinopril) 10 Mg Tablet, 10 MG PO DAILY, (Reported) Entered as Reported by: LUCIANA RIVERA on 08/06/20 124 Metoprolol Succinate (Metoprolol Succinate) 100 Mg Tab.er.24h, 100 MG PO BID, (Reported) Entered as Reported by: LUCIANA RIVERA on 08/06/20 124 Potassium Chloride (Potassium Chloride) 20 Meq Tab.er.prt, 20 MEQ PO DAILY Prescribed by: YASHIRA MARTINEZ on 09/16/192028 Rivaroxaban (Xarelto) 10 Mg Tablet, 10 MG PO DAILY, (Reported) Entered as Reported by: LUCIANA Pitts MIGUEL on 08/06/20 8955 Review of Systems Review of Systems Constitutional: see HPI EENTM: see HPI Respiratory: see HPI Cardiovascular: see HPI Gastrointestinal: see HPI Genitourinary: see HPI Musculoskeletal: see HPI Skin: see HPI Psychiatric/Neurological: See HPI Hematologic/Lymphatic: See HPI Immunological/Allergic: see HPI All Other Systems Reviewed Negative Unless Noted: Yes Past Brxcknr-Jczshm-Qnbipc Hx Patient Social History Tobacco Use?: Yes Substance use?: No Alcohol Use?: Yes Alcohol type: Beer Pt feels they are or have been: No Immunizations Up To Date Tetanus Booster (TDap): Unknown Seasonal Allergies Seasonal Allergies: No Past Medical History Surgery/Hospitalization HX: dementia, HTN Surgeries: Yes (Carotid ) Orthopedic Respiratory: No Cardiac: Yes Atrial Fibrillation, Hypertension Neurological: Yes Stroke Genitourinary: No Gastrointestinal: No Musculoskeletal: No Endocrine: No HEENT: No Cancer: No Psychosocial: No Integumentary: No Blood Disorders: No Family Medical History Other Conditions/Hx Physical Exam Vital Signs Vital Signs - First Documented 09/10/21 14:00 Temp 38.2 Pulse 80 Resp 17 B/P (MAP) 162/71 (101) Pulse Ox 95 O2 Delivery Room Air Capillary Refill : Less Than 3 Seconds Height, Weight, BMI Height: 6'" Weight: 245lbs. oz. 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 Norm as Tested Focused Exam Sepsis Stage: Ruled Out Lactate Level 09/10/21 14:03: Lactic Acid Level 0.84 Lactic Acid Level Laboratory Tests Test 09/10/21 14:03 Lactic Acid Level 0.84 MMOL/L (0.50-2.00) Progress/Results/Core Measures Suspected Sepsis SIRS Temperature: Pulse: 80 Respiratory Rate: 17 Laboratory Tests 09/10/21 14:03: White Blood Count 8.2 Blood Pressure 162 /71 Mean: 101 09/10/21 14:03: Lactic Acid Level 0.84 Laboratory Tests 09/10/21 14:03: Creatinine 1.08, Platelet Count 173, Total Bilirubin 1.8H Results/Orders Lab Results Laboratory Tests Test 09/10/21 13:17 09/10/21 14:03 09/10/21 14:09 Range/Units Urine Color YELLOW Urine Clarity CLEAR Urine pH 5.5 5-9 Urine Specific Halsey 1.025 H 1.016-1.022 Urine Protein 2+ H NEGATIVE Urine Glucose (UA) NEGATIVE NEGATIVE Urine Ketones NEGATIVE NEGATIVE Urine Nitrite NEGATIVE NEGATIVE Urine Bilirubin NEGATIVE NEGATIVE Urine Urobilinogen 0.2 < = 1.0 MG/DL Urine Leukocyte Esterase NEGATIVE NEGATIVE Urine RBC (Auto) TRACE-I H NEGATIVE Urine RBC 5-10 H /HPF Urine WBC NONE /HPF Urine Squamous Epithelial Cells 2-5 /HPF Urine Crystals NONE /LPF Urine Bacteria TRACE /HPF Urine Casts NONE /LPF Urine Mucus NEGATIVE /LPF Urine Culture Indicated NO White Blood Count 8.2 4.3-11.0 10^3/uL Red Blood Count 4.11 L 4.30-5.52 10^6/uL Hemoglobin 12.2 L 13.3-17.7 g/dL Hematocrit 37 L 40-54 % Mean Corpuscular Volume 91 80-99 fL Mean Corpuscular Hemoglobin 30 25-34 pg Mean Corpuscular Hemoglobin Concent 33 32-36 g/dL Red Cell Distribution Width 13.9 10.0-14.5 % Platelet Count 173 130-400 10^3/uL Mean Platelet Volume 11.6 9.0-12.2 fL Immature Granulocyte % (Auto) 1 % Neutrophils (%) (Auto) 84 H 42-75 % Lymphocytes (%) (Auto) 5 L 12-44 % Monocytes (%) (Auto) 10 0-12 % Eosinophils (%) (Auto) 0 0-10 % Basophils (%) (Auto) 1 0-10 % Neutrophils # (Auto) 6.8 1.8-7.8 X 10^3 Lymphocytes # (Auto) 0.4 L 1.0-4.0 X 10^3 Monocytes # (Auto) 0.8 0.0-1.0 X 10^3 Eosinophils # (Auto) 0.0 0.0-0.3 10^3/uL Basophils # (Auto) 0.0 0.0-0.1 10^3/uL Immature Granulocyte # (Auto) 0.0 0.0-0.1 10^3/uL Neutrophils % (Manual) 79 % Lymphocytes % (Manual) 12 % Monocytes % (Manual) 9 % Sodium Level 138 135-145 MMOL/L Potassium Level 4.3 3.6-5.0 MMOL/L Chloride Level 106 98-107 MMOL/L Carbon Dioxide Level 21 21-32 MMOL/L Anion Gap 11 5-14 MMOL/L Blood Urea Nitrogen 20 H 7-18 MG/DL Creatinine 1.08 0.60-1.30 MG/DL Estimat Glomerular Filtration Rate 65 BUN/Creatinine Ratio 19 Glucose Level 120 H 70-105 MG/DL Lactic Acid Level 0.84 0.50-2.00 MMOL/L Calcium Level 9.0 8.5-10.1 MG/DL Corrected Calcium 8.5-10.1 MG/DL Magnesium Level 1.8 1.6-2.4 MG/DL Total Bilirubin 1.8 H 0.1-1.0 MG/DL Aspartate Amino Transf (AST/SGOT) 20 5-34 U/L Alanine Aminotransferase (ALT/SGPT) 17 0-55 U/L Alkaline Phosphatase 141 H 40-136 U/L Total Protein 7.2 6.4-8.2 GM/DL Albumin 4.0 3.2-4.5 GM/DL Serum Alcohol < 10 <10 MG/DL Influenza Type A (RT-PCR) Not Detected Not Detecte Influenza Type B (RT-PCR) Not Detected Not Detecte SARS-CoV-2 RNA (RT-PCR) Detected H Not Detecte My Orders [place] - CHUNG ZEPEDA DO Cbc With Automated Diff (09/10/21 13:59) Comprehensive Metabolic Panel (09/10/21 13:59) Lactic Acid Analyzer (09/10/21 13:59) Chest 1 View Ap/Pa Only (09/10/21 13:59) Urinalysis (09/10/21 13:59) Ekg-Prn For Chest Pain Or Rhyt (09/10/21 13:59) Alcohol (09/10/21 13:59) Magnesium (09/10/21 13:59) Ceftriaxone (Rocephin) (09/10/21 14:15) Manual Differential (09/10/21 14:03) Covid 19 Inhouse Test (09/10/21 15:09) Influenza A And B By Pcr (09/10/21 15:09) Isolation Central Supply Req (09/10/21 15:09) Ceftriaxone 1 Gm Pre-Mix (Rocephin 1 Gm (09/10/21 16:15) Prednisone Tablet (Deltasone Tablet) (09/10/21 17:30) Vital Signs/I&O 09/10/21 14:00 Temp 38.2 Pulse 80 Resp 17 B/P (MAP) 162/71 (101) Pulse Ox 95 O2 Delivery Room Air Capillary Refill : Less Than 3 Seconds Blood Pressure Mean: 101 Departure Communication (Admissions) EKG: Atrial fibrillation, with LVH Altered mental status with fever. Covid positive. Vital signs stable without respiratory compromise. Case discussed with patient's daughter who is his emr implementation specialist/medical power of litigation attorney associate. She agrees to supervise him and remain quarantined. Discussed with her signs of symptoms requiring reevaluation and return to the emergency department. I did recommend the Regeneron infusion which the patient's power of litigation attorney associate declined. She status states she will follow-up with PCP for his recommendations. Steroids given. Provide supportive care. Impression Primary Impression: Dementia Additional Impression: COVID Disposition: 01 HOME, SELF-CARE Condition: Stable Departure-Patient Inst. Decision time for Depature: 17:21 Referrals: PHAM MENDIOLA MD (PCP/Family) Primary Care Physician Patient Instructions: Dementia ED, COVID-19 Overview Add. Discharge Instructions: Please encourage fluids daily caloric intake. Continue home medications and take newly prescribed medications as directed. Monitor home O2 saturation level. If oxygen's are persistently lower than 90% return to the emergency department. Contact [facility] PCP tomorrow for a second opinion regarding Regeneron infusion. All discharge instructions reviewed with patient and/or family. Voiced unde rstanding. Scripts Albuterol Sulfate (Proventil Hfa) 6.7 Gm Hfa.aer.ad 2 PUFF INH Q6H for SHORTNESS OF BREATH, #1 EACH Prov: CHUNG ZEPEDA DO 09/10/21 Prednisone (Prednisone) 20 Mg Tab 40 MG PO DAILY, #6 TAB 0 Refills Prov: CHUNG ZEPEDA DO 09/10/21 Doxycycline Hyclate (Doxycycline Hyclate) 100 Mg Tablet 100 MG PO BID, #20 TAB 0 Refills Prov: CHUNG ZEPEDA DO 09/10/21 CHUNG ZEPEDA DO Sep 10, 2021 15:32
[2021-09-10] MEDS ORDERED: cefTRIAXone 1 GM PRE-MIX 50 ML IV ONE (16:15)
[2021-09-10] MEDS ORDERED: DOXY100T2 PO (17:23)
[2021-09-10] MEDS ORDERED: PRD20T PO (17:23)
[2021-09-10] MEDS ORDERED: RT-ALBUINH INH (17:23)
[2021-09-10] MEDS ORDERED: predniSONE 20 MG TAB PO ONE (17:30)
[2021-09-10 17:46] VITALS: BP 172/89
== END 2021-09-10 18:07 | disposition home or self-care (01) ==
LOC: EDUNIT# 13:53 → ER FS 13:54
DX: U07.1 COVID-19 (principal); F03.90 Unspecified dementia, unspecified severity, without behavioral disturbance, psychotic disturbance, mood disturbance, and anxiety; I10 Essential (primary) hypertension; I48.91 Unspecified atrial fibrillation; Z86.73 Personal history of transient ischemic attack (TIA), and cerebral infarction without residual deficits; Z72.0 Tobacco use; Z79.01 Long term (current) use of anticoagulants
CPT/HCPCS: 36415; 71045; 80053; 81000; 83605; 83735; 85007; 85027; 87636; 93005; 99284; G0480; 80320

== ENCOUNTER 2021-12-30 19:05 | Inpatient (IN) | payer MEDICARE ==
[2021-12-30] VITALS (9 sets, daily range): BP systolic 116–163; BP diastolic 55–76
[~2021-12-30] VITALS: Ht 187 cm; Wt 100.0 kg
[~2021-12-30 19:05] MED LIST changes: +DOXY100T2 PO; +PRD20T PO; +RT-ALBUINH INH
[2021-12-30 19:33] LABS: BASOPHILS % (AUTO) 0 % (0-10); EOSINOPHILS % (AUTO) 0 % (0-10); LYMPHOCYTES # (AUTO) 1.1 10^3/uL (1.0-4.0); LYMPHOCYTES % (AUTO) 13 % (12-44); MEAN CORPUSCULAR HEMOGLOBIN 24 pg (25-34); MEAN CORPUSCULAR HGB CONC 29 g/dL (32-36); MEAN CORPUSCULAR VOLUME 82 fL (80-99); MEAN PLATELET VOLUME 11.7 fL (9.0-12.2); MONOCYTES # (AUTO) 0.9 10^3/uL (0.0-1.0); MONOCYTES % (AUTO) 10 % (0-12); NEUTROPHILS # (AUTO) 6.8 10^3/uL (1.8-7.8); NEUTROPHILS % (AUTO) 76 % (42-75); PLATELET COUNT 255 10^3/uL (130-400); WHITE BLOOD COUNT 8.9 10^3/uL (4.3-11.0)
[2021-12-30 19:36] LABS: HEMATOCRIT 17 % (40-54)
[2021-12-30] MEDS ORDERED: PIPERACILLIN SODIUM/TAZOBACTAM 4.5 GM in NS (IVPB) 100 ML IV STA (19:37)
[2021-12-30 19:39] LABS: HEMOGLOBIN 4.9 g/dL (13.3-17.7)
[2021-12-30] MEDS ORDERED: NS IV 1000 ML 1,000 ML IV STA (19:39)
--- NOTE | 2021-12-30 19:51 | ED General ---
General Chief Complaint: Respiratory Problems Stated Complaint: SOB Nursing Triage Note: Pt c/o SOA and feeling dizzy x 1 week. Pt denies chest pain, cough, or fever. Pt stated "I'm having a hard time getting around." Source of Information: Patient, Caregiver History of Present Illness Date Seen by Provider: Dec 30, 2021 Time Seen by Provider: 19:07 Initial Comments 86-year-old male presenting with increased shortness of breath and dizziness over the last week. He denies having chest pain, cough, fever. He feels like he gets more short of breath and dizzy when he is up walking and exerting himself. He denies having any abdominal pain, nausea, vomiting, pain with urination. He does have a history of atrial fibrillation and takes Xarelto. Timing/Duration: 1 Week Severity: Moderate Modifying Factors: worse with Movement (Exertion makes him have the shortness of breath and dizziness) Associated Systoms: No Chest Pain, No Cough, No Diaphoresis, No Fever/Chills, No Headaches, No Loss of Appetite, No Malaise, No Nausea/Vomiting, No Rash, No Seizure; Shortness of Air (With exertion); No Syncope; Weakness (Generalized) Allergies and Home Medications Allergies Coded Allergies: No Known Drug Allergies (Unverified , 08/20/14) Patient Home Medication List Home Medication List Reviewed: Yes Albuterol Sulfate (Proventil Hfa) 6.7 Gm Hfa.aer.ad, 2 PUFF INH Q6H Prescribed by: CHUNG ZEPEDA on 09/10/21 172 Amoxicillin/Potassium Clav (Augmentin 875-125 Tablet) 1 Each Tablet, 1 EACH PO BID Prescribed by: AMBERLY OWENS on 12/25/201199 Doxycycline Hyclate (Doxycycline Hyclate) 100 Mg Tablet, 100 MG PO BID Prescribed by: CHUNG ZEPEDA on 09/10/21 172 Furosemide (Lasix) 20 Mg Tablet, 20 MG PO DAILY Prescribed by: YASHIRA MARTINEZ on 09/16/192028 Gabapentin (Gabapentin) 100 Mg Capsule, 100 MG PO Q8H, (Reported) Entered as Reported by: LUCIANA RIVERA on 08/06/20 1245 Lisinopril (Lisinopril) 10 Mg Tablet, 10 MG PO DAILY, (Reported) Entered as Reported by: LUCIANA RIVERA on 08/06/20 1245 Metoprolol Succinate (Metoprolol Succinate) 100 Mg Tab.er.24h, 100 MG PO BID, (Reported) Entered as Reported by: LUCIANA RIVERA on 08/06/20 1245 Potassium Chloride (Potassium Chloride) 20 Meq Tab.er.prt, 20 MEQ PO DAILY Prescribed by: YASHIRA MARTINEZ on 09/16/192028 Prednisone (Prednisone) 20 Mg Tab, 40 MG PO DAILY Prescribed by: CHUNG ZEPEDA on 09/10/21 172 Rivaroxaban (Xarelto) 10 Mg Tablet, 10 MG PO DAILY, (Reported) Entered as Reported by: LUCIANA RIVERA on 08/06/20 1245 Review of Systems Review of Systems Constitutional: see HPI EENTM: no symptoms reported Respiratory: see HPI Cardiovascular: see HPI Gastrointestinal: No nausea, No vomiting Genitourinary: no symptoms reported Musculoskeletal: no symptoms reported Skin: no symptoms reported Psychiatric/Neurological: No Symptoms Reported Past Lqtjoop-Gbmozu-Mmdosc Hx Patient Social History Tobacco Use?: No Use of E-Cig and/or Vaping dev: No Alcohol Use?: Yes Alcohol type: Beer Alcohol Frequency: Rarely Pt feels they are or have been: No Immunizations Up To Date Tetanus Booster (TDap): Unknown Influenza Vaccine Up-to-Date: No; Not Current First/Initial COVID19 Vaccinat: denies Seasonal Allergies Seasonal Allergies: No Past Medical History Surgery/Hospitalization HX: dementia, HTN, chronic atrial fibrillation Surgeries: Yes (Carotid ) Orthopedic Respiratory: No Cardiac: Yes Atrial Fibrillation, Hypertension Neurological: Yes Stroke Genitourinary: No Gastrointestinal: No Musculoskeletal: No Endocrine: No HEENT: No Cancer: No Psychosocial: No Integumentary: No Blood Disorders: No Family Medical History Other Conditions/Hx Physical Exam Vital Signs Vital Signs - First Documented 12/30/21 19:08 Temp 36.5 Pulse 66 Resp 19 B/P (MAP) 116/55 (75) Pulse Ox 100 O2 Delivery Room Air Capillary Refill : Height, Weight, BMI Height: 6'" Weight: 245lbs. oz. 111.067988pw; 30.00 BMI Method: General Appearance: No Apparent Distress, WD/WN HEENT: PERRL/EOMI, Pharynx Normal Neck: Full Range of Motion, Normal Inspection, Non Tender, Supple Respiratory: Chest Non Tender, Lungs Clear, Normal Breath Sounds, No Accessory Muscle Use, No Respiratory Distress Cardiovascular: Normal Peripheral Pulses, Irregularly Irregular Gastrointestinal: Normal Bowel Sounds, No Pulsatile Mass, Non Tender, Soft Rectal: Normal Rectal Tone, Heme Negative Stool, Other (some dark colored stool present in anal cleft but stool was brown on IKE and was hemoccult negative) Extremity: Normal Capillary Refill, Normal Inspection, No Pedal Edema Neurologic/Psychiatric: Alert, Oriented x3 Skin: Warm/Dry, Pallor Focused Exam Lactate Level 12/30/21 19:25: Lactic Acid Level 5.80*H Lactic Acid Level Laboratory Tests Test 12/30/21 19:25 Lactic Acid Level 5.80 MMOL/L (0.50-2.00) *H Progress/Results/Core Measures Suspected Sepsis SIRS Temperature: Pulse: 66 Respiratory Rate: 19 Laboratory Tests 12/30/21 19:25: White Blood Count 8.9 Blood Pressure 116 /55 Mean: 75 12/30/21 19:25: Lactic Acid Level 5.80*H Laboratory Tests 12/30/21 19:25: Creatinine 1.36H, Platelet Count 255, Total Bilirubin 1.0 Results/Orders Lab Results Laboratory Tests Test 12/30/21 19:25 12/30/21 19:30 Range/Units White Blood Count 8.9 4.3-11.0 10^3/uL Red Blood Count 2.05 L 4.30-5.52 10^6/uL Hemoglobin 4.9 *L 13.3-17.7 g/dL Hematocrit 17 *L 40-54 % Mean Corpuscular Volume 82 80-99 fL Mean Corpuscular Hemoglobin 24 L 25-34 pg Mean Corpuscular Hemoglobin Concent 29 L 32-36 g/dL Red Cell Distribution Width 18.4 H 10.0-14.5 % Platelet Count 255 130-400 10^3/uL Mean Platelet Volume 11.7 9.0-12.2 fL Immature Granulocyte % (Auto) 0 % Neutrophils (%) (Auto) 76 H 42-75 % Lymphocytes (%) (Auto) 13 12-44 % Monocytes (%) (Auto) 10 0-12 % Eosinophils (%) (Auto) 0 0-10 % Basophils (%) (Auto) 0 0-10 % Neutrophils # (Auto) 6.8 1.8-7.8 10^3/uL Lymphocytes # (Auto) 1.1 1.0-4.0 10^3/uL Monocytes # (Auto) 0.9 0.0-1.0 10^3/uL Eosinophils # (Auto) 0.0 0.0-0.3 10^3/uL Basophils # (Auto) 0.0 0.0-0.1 10^3/uL Immature Granulocyte # (Auto) 0.0 0.0-0.1 10^3/uL Neutrophils % (Manual) 78 % Lymphocytes % (Manual) 19 % Monocytes % (Manual) 3 % Polychromasia MODERATE Hypochromasia MARKED Poikilocytosis MODERATE Basophilic Stippling MODERATE Anisocytosis MARKED Tear Drop Cells SLIGHT Elliptocytes SLIGHT Sodium Level 142 135-145 MMOL/L Potassium Level 4.4 3.6-5.0 MMOL/L Chloride Level 110 H 98-107 MMOL/L Carbon Dioxide Level 16 L 21-32 MMOL/L Anion Gap 16 H 5-14 MMOL/L Blood Urea Nitrogen 30 H 7-18 MG/DL Creatinine 1.36 H 0.60-1.30 MG/DL Estimat Glomerular Filtration Rate 50 BUN/Creatinine Ratio 22 Glucose Level 141 H 70-105 MG/DL Lactic Acid Level 5.80 *H 0.50-2.00 MMOL/L Calcium Level 8.9 8.5-10.1 MG/DL Corrected Calcium 9.1 8.5-10.1 MG/DL Magnesium Level 2.1 1.6-2.4 MG/DL Total Bilirubin 1.0 0.1-1.0 MG/DL Aspartate Amino Transf (AST/SGOT) 13 5-34 U/L Alanine Aminotransferase (ALT/SGPT) 7 0-55 U/L Alkaline Phosphatase 91 40-136 U/L Troponin I < 0.30 <0.30 NG/ML C-Reactive Protein < 0.30 <0.50 MG/DL Pro-B-Type Natriuretic Peptide 3184.0 H <75.0 PG/ML Total Protein 6.3 L 6.4-8.2 GM/DL Albumin 3.8 3.2-4.5 GM/DL Influenza Type A Antigen NEGATIVE NEGATIVE Influenza Type B Antigen NEGATIVE NEGATIVE My Orders Orders - ARTEM QUIÑONEZ MD Cbc With Automated Diff (12/30/21 19:19) Comprehensive Metabolic Panel (12/30/21 19:19) Blood Culture (12/30/21 19:19) Chest 1 View Ap/Pa Only (12/30/21 19:19) Magnesium (12/30/21 19:19) Ekg Tracing (12/30/21 19:19) O2 (12/30/21 19:19) Ed Iv/Invasive Line Start (12/30/21 19:19) Monitor-Rhythm Ecg Trace Only (12/30/21 19:19) Crp Fs (12/30/21 19:19) Lactic Acid Analyzer (12/30/21 19:19) Troponin I Fs (12/30/21 19:19) Probnp Fs (12/30/21 19:19) Ct Head Wo (12/30/21 19:19) Covid 19 Inhouse Test (12/30/21 19:19) Influenza A & B Antigens (12/30/21 19:19) Ns Iv 1000 Ml (Sodium Chloride 0.9%) (12/30/21 19:39) Manual Differential (12/30/21 19:25) Fecal Occult Bedside (12/30/21 20:19) Ed Admission (Communication) (12/30/21 20:31) Pantoprazole Injection (Protonix Injecti (12/30/21 20:41) Vital Signs/I&O 12/30/21 19:08 Temp 36.5 Pulse 66 Resp 19 B/P (MAP) 116/55 (75) Pulse Ox 100 O2 Delivery Room Air Capillary Refill : Blood Pressure Mean: 75 Progress Note #1: Progress Note Obtain x-ray as well as labs and blood cultures to look for source of possible infection such as pneumonia causing his shortness of breath. With the dizziness also obtain electrocardiogram and CT scan of the head to look for signs of acute ischemia or stroke. Order 1 L normal saline IV for hydration. COVID and influenza swab as another potential source of his shortness of breath and dizziness. Progress Note #2: Progress Note Labs show hemoglobin is 4.9 and in September his hemoglobin was over 12. Rectal exam with Hemoccult was performed and was heme-negative. Will order Protonix 40 mg IV and check with [facility] about admission. His lactic acid also came back elevated at 5.8 but he has no definite source of infection so this may be related to hydration and his acute anemia. [address] Carter for [facility] service. She accepted the patient for admission and requested that he go inpatient to the cardiac stepdown unit. ECG Initial ECG Impression Date: Dec 30, 2021 Initial ECG Impression Time: 19:35 Initial ECG Rate: 53 Initial ECG Rhythm: A Fib/Flutter Initial ECG Comparisson: Unchanged Comment Atrial fibrillation with slow ventricular response at a rate of 53 bpm. Flattened T waves in lateral and inferior leads. QT interval 464 ms with a QTc interval 447 ms. Overall this appears similar to prior tracings in the system. Diagnostic Imaging Diagonstic Imaging: Xray Plain Films/CT/US/NM/MRI: chest Comments [facility] [place] [place] NAME: EVA PARIKH [facility] REC#: [id number] PT STATUS: REG ER : 1935 PHYSICIAN: ARTEM QUIÑONEZ MD ADMIT DATE: 12/30/21/ER FS Signed Date of Exam:12/30/21 CHEST 1 VIEW AP/PA ONLY EXAMINATION: Chest 1 view. HISTORY: Shortness of breath. COMPARISON: 09/10/2021. FINDINGS: The lung volumes are normal. No focal consolidation is seen. No large pleural effusion or pneumothorax is seen. The cardiomediastinal silhouette is prominent with central pulmonary vascular congestion. There is calcified aortic atherosclerotic plaque. No acute osseous abnormality is seen. IMPRESSION: Cardiomegaly with prominent central pulmonary vasculature. No overt pulmonary edema. Dictated by: Dictated on workstation # [id number] Dict: 12/30/211955 Trans: 12/30/211999 [facility] [id number] Interpreted by: NOEL BAKER DO Electronically signed by: NOEL BAKER DO 12/30/211999 Reviewed: Reviewed by Ok Diagonstic Imaging: CT Plain Films/CT/US/NM/MRI: head Comments [facility] [place], [place] NAME: EVA PARIKH [facility] REC#: [id number] PT STATUS: REG ER : 1935 PHYSICIAN: ARTEM QUIÑONEZ MD ADMIT DATE: 12/30/21/ER FS Signed Date of Exam:12/30/21 CT HEAD WO EXAMINATION: CT head without contrast. TECHNIQUE: Multiple contiguous axial images were obtained through the brain without the use of intravenous contrast. All CT scans use one or more of the following dose optimizing techniques: automated exposure control, MA and/or KvP adjustment based on patient size and exam type or iterative reconstruction. HISTORY: Dizziness. COMPARISON: 08/05/2020. FINDINGS: No large acute territorial ischemia, mass or hemorrhage. No midline shift or mass effect. Chronic infarct is seen in the right frontal lobe. Decreased attenuation is seen in the periventricular and subcortical white matter. The ventricles and cortical sulci are prominent. The basilar cisterns are patent and unremarkable. The orbits are normal. Paranasal sinuses are normal. Mastoid air cells are clear. No soft tissue abnormality is seen. No osseus lesions or fractures are seen. IMPRESSION: 1. No large acute territorial ischemia, mass or hemorrhage. 2. Chronic infarct in the right frontal lobe. 3. Generalized parenchymal volume loss with chronic microvascular disease. Dictated by: Dictated on workstation # [id number] Dict: 12/30/211954 Trans: 12/30/211999 [facility] [id number] Interpreted by: NOEL BAKER DO Electronically signed by: NOEL BAKER DO 12/30/211999 Reviewed: Reviewed by Me Departure Communication (Admissions) Time/Spoke to Admitting Phy: 20:[address] Carter and she is on-call for [facility]. Will admit to cardiac stepdown unit for his anemia and lactic acidosis. He is receiving IV fluids here in the ED and she will place queued orders for [place]. Impression Primary Impression: Acute anemia Additional Impressions: Short of breath on exertion Dizzy spells Lactic acid acidosis Disposition: 30 STILL A PATIENT Condition: Stable Admissions Decision to Admit Reason: Admit from ER (General) Decision to Admit/Date: Dec 30, 2021 Time/Decision to Admit Time: 20:28 Departure-Patient Inst. Referrals: PHAM MENDIOLA MD (PCP/Family) Primary Care Physician ARTEM QUIÑONEZ MD Dec 30, 2021 19:51
--- NOTE | 2021-12-30 19:57 | Diagnostic Imaging Report ---
EXAMINATION: CT head without contrast. TECHNIQUE: Multiple contiguous axial images were obtained through the brain without the use of intravenous contrast. All CT scans use one or more of the following dose optimizing techniques: automated exposure control, MA and/or KvP adjustment based on patient size and exam type or iterative reconstruction. HISTORY: Dizziness. COMPARISON: 08/05/2020. FINDINGS: No large acute territorial ischemia, mass or hemorrhage. No midline shift or mass effect. Chronic infarct is seen in the right frontal lobe. Decreased attenuation is seen in the periventricular and subcortical white matter. The ventricles and cortical sulci are prominent. The basilar cisterns are patent and unremarkable. The orbits are normal. Paranasal sinuses are normal. Mastoid air cells are clear. No soft tissue abnormality is seen. No osseus lesions or fractures are seen. IMPRESSION: 1. No large acute territorial ischemia, mass or hemorrhage. 2. Chronic infarct in the right frontal lobe. 3. Generalized parenchymal volume loss with chronic microvascular disease. Dictated by: Dictated on workstation # [id number]
--- NOTE | 2021-12-30 19:58 | Diagnostic Imaging Report ---
EXAMINATION: Chest 1 view. HISTORY: Shortness of breath. COMPARISON: 09/10/2021. FINDINGS: The lung volumes are normal. No focal consolidation is seen. No large pleural effusion or pneumothorax is seen. The cardiomediastinal silhouette is prominent with central pulmonary vascular congestion. There is calcified aortic atherosclerotic plaque. No acute osseous abnormality is seen. IMPRESSION: Cardiomegaly with prominent central pulmonary vasculature. No overt pulmonary edema. Dictated by: Dictated on workstation # [id number]
[2021-12-30 20:10] LABS: BUN/CREATININE RATIO 22; CALCIUM 8.9 MG/DL (8.5-10.1); CARBON DIOXIDE 16 MMOL/L (21-32); CHLORIDE 110 MMOL/L (98-107); CREATININE SERUM 1.36 MG/DL (0.60-1.30); GFR ESTIMATED 50; GLUCOSE 141 MG/DL (70-105); MAGNESIUM 2.1 MG/DL (1.6-2.4); POTASSIUM 4.4 MMOL/L (3.6-5.0); SODIUM 142 MMOL/L (135-145)
[2021-12-30 20:11] LABS: ALANINE AMINOTRANSFERASE 7 U/L (0-55); ALBUMIN 3.8 GM/DL (3.2-4.5); ALKALINE PHOSPHATASE 91 U/L (40-136); TOTAL PROTEIN 6.3 GM/DL (6.4-8.2)
[2021-12-30 20:24] LABS: LYMPHOCYTES % (MANUAL) 19 %; MONOCYTES % (MANUAL) 3 %; NEUTROPHILS % (MANUAL) 78 %
[2021-12-30 20:25] LABS: ANISOCYTOSIS MARKED; ELLIPT/OVALOCYTES SLIGHT; HYPOCHROMASIA MARKED; POIKILOCYTOSIS MODERATE; POLYCHROMASIA MODERATE; TEAR DROP CELLS SLIGHT
[2021-12-30] MEDS ORDERED: PANTOPRAZOLE 40 MG (PROTONIX) VIAL IV STA (20:41)
[2021-12-30] MEDS ORDERED: NS IV 500 ML 500 ML IV SCH ×2 (21:45)
[2021-12-30] MEDS ORDERED: morphine INJ 4 MG/ML 1 ML (VIAL/SYRINGE) IV PRN (21:45)
[2021-12-30] MEDS ORDERED: MELATONIN 3 MG TABLET PO PRN (21:45)
[2021-12-30] MEDS ORDERED: ONDANSETRON 4 MG/2 ML (SDV) Z0FRAN IV PRN (21:45)
[2021-12-30] MEDS ORDERED: polyethylene glycoL POWDER 17 GM (MIRALAX) PACK PO PRN (21:45)
[2021-12-30] MEDS ORDERED: ONDANSETRON 4 MG (ZOFRAN) ORAL DISSOLVE TAB PO PRN (21:45)
[2021-12-30] MEDS ORDERED: diphenhydrAMINE 50 MG/ML INJ (BENADRYL) IVP PRN (21:45)
[2021-12-30] MEDS ORDERED: diphenhydrAMINE 25 MG TAB (BENADRYL) PO PRN (21:45)
[2021-12-30] MEDS ORDERED: BISACODYL 10 MG SUPP (DULCOLAX) PR PRN (21:45)
[2021-12-30] MEDS ORDERED: ANTACID SUSP 30 ML UDC (MYLANTA) PO PRN (21:45)
[2021-12-30 22:04] LABS: BASOPHILS % (AUTO) 0 % (0-10); EOSINOPHILS % (AUTO) 0 % (0-10); LYMPHOCYTES # (AUTO) 0.9 10^3/uL (1.0-4.0); LYMPHOCYTES % (AUTO) 12 % (12-44); MEAN CORPUSCULAR HEMOGLOBIN 24 pg (25-34); MEAN CORPUSCULAR HGB CONC 29 g/dL (32-36); MEAN CORPUSCULAR VOLUME 83 fL (80-99); MEAN PLATELET VOLUME 11.8 fL (9.0-12.2); MONOCYTES # (AUTO) 0.8 10^3/uL (0.0-1.0); MONOCYTES % (AUTO) 10 % (0-12); NEUTROPHILS # (AUTO) 5.6 10^3/uL (1.8-7.8); NEUTROPHILS % (AUTO) 77 % (42-75); PLATELET COUNT 209 10^3/uL (130-400); WHITE BLOOD COUNT 7.3 10^3/uL (4.3-11.0)
[2021-12-30 22:08] LABS: HEMATOCRIT 15 % (40-54); HEMOGLOBIN 4.5 g/dL (13.3-17.7)
[2021-12-30] MEDS: NS IV 1000 ML 1,000 ML IV SCH (22:12)
[2021-12-30 22:16] LABS: ALBUMIN 3.4 GM/DL (3.2-4.5); POTASSIUM 4.3 MMOL/L (3.6-5.0)
[2021-12-30 22:17] LABS: CALCIUM 8.2 MG/DL (8.5-10.1)
[2021-12-30 22:18] LABS: TOTAL PROTEIN 5.7 GM/DL (6.4-8.2)
[2021-12-30 22:20] LABS: BILIRUBIN,TOTAL 1.1 MG/DL (0.1-1.0)
[2021-12-30 22:22] LABS: CREATININE SERUM 1.29 MG/DL (0.60-1.30)
[2021-12-30 22:33] LABS: INR 3.3 (0.8-1.4); PROTHROMBIN TIME PATIENT 34.2 SEC (12.2-14.7)
[2021-12-30] MEDS ORDERED: RT-ALBUTEROL SULF 2.5 MG/3 ML PRE-MIX VIAL INH PRN (23:30)
[2021-12-31] VITALS (19 sets, daily range): BP systolic 121–164; BP diastolic 65–90
[2021-12-31] MEDS: ACETAMINOPHEN 325 MG TABLET PO PRN (01:34)
[2021-12-31 04:00] LABS: BASOPHILS % (AUTO) 1 % (0-10); EOSINOPHILS % (AUTO) 0 % (0-10); LYMPHOCYTES # (AUTO) 1.4 10^3/uL (1.0-4.0); LYMPHOCYTES % (AUTO) 25 % (12-44); MEAN CORPUSCULAR HEMOGLOBIN 25 pg (25-34); MEAN CORPUSCULAR HGB CONC 30 g/dL (32-36); MEAN CORPUSCULAR VOLUME 83 fL (80-99); MEAN PLATELET VOLUME 11.7 fL (9.0-12.2); MONOCYTES # (AUTO) 0.8 10^3/uL (0.0-1.0); MONOCYTES % (AUTO) 15 % (0-12); NEUTROPHILS # (AUTO) 3.3 10^3/uL (1.8-7.8); NEUTROPHILS % (AUTO) 59 % (42-75); PLATELET COUNT 194 10^3/uL (130-400); WHITE BLOOD COUNT 5.6 10^3/uL (4.3-11.0)
[2021-12-31 04:02] LABS: HEMATOCRIT 17 % (40-54); HEMOGLOBIN 5.1 g/dL (13.3-17.7)
[2021-12-31 04:11] LABS: INR 2.4 (0.8-1.4); PROTHROMBIN TIME PATIENT 26.6 SEC (12.2-14.7)
[2021-12-31 04:14] LABS: ALBUMIN 3.2 GM/DL (3.2-4.5); POTASSIUM 4.3 MMOL/L (3.6-5.0)
[2021-12-31 04:17] LABS: TOTAL PROTEIN 5.3 GM/DL (6.4-8.2)
[2021-12-31 04:19] LABS: BILIRUBIN,TOTAL 1.4 MG/DL (0.1-1.0)
[2021-12-31 04:20] LABS: CREATININE SERUM 1.32 MG/DL (0.60-1.30)
--- NOTE | 2021-12-31 06:31 | History & Physical-Hospitalist ---
History of Present Illness HPI/Chief Complaint Chief complaint: Symptomatic anemia History of present illness: This is an 86-year-old white male with a history of dementia and atrial fibrillation on anticoagulation who presented with shortness of breath and weakness and found to have hemoglobin of 4.9. His Hemoccult was negative. Dr. Carpenter and Dr. LUNA were consulted due to suspicion of GI bleed. He received 2 units of packed red blood cells and his hemoglobin is still low so we will give him another unit. He will have a scope tomorrow. Source: patient Exam Limitations: no limitations Date Seen 12/31/21 Time Seen by a Provider: 12:00 Attending Physician Selma Carter Pankaj K MD Referring Physician Date of Admission Dec 30, 2021 at 21:39 Home Medications & Allergies Home Medications Reviewed patient Home Medication Reconciliation performed by pharmacy medication reconciliations medical records technician and/or nursing. Patients Allergies have been reviewed. Allergies Allergies Coded Allergies No Known Drug Allergies (Amokpjxwhi47/19/14) Past Kzyyezt-Sshvaf-Tepgkt Hx Patient Social History Marrital Status: single Employed/Student: retired Tobacco Use?: No Smoking Status: Unknown if Ever Smoked Use of E-Cig and/or Vaping dev: No Alcohol Use?: Yes Alcohol type: Beer Alcohol Frequency: Rarely Pt feels they are or have been: No Immunizations Up To Date First/Initial COVID19 Vaccinat: denies Seasonal Allergies Seasonal Allergies: No Current Status Advance Directives: No Communicates: Verbally Primary Language: Ghanaian Preferred Spoken Language: Ghanaian Is interpretation needed?: No Sensory deficits: Hearing impairment Implanted or Applied Medical D: None Past Medical History Surgeries: Orthopedic Atrial Fibrillation, Hypertension Dementia, Stroke Blood Disorders: No Family Medical History Other Conditions/Hx Review of Systems Constitutional: see HPI, dizziness, malaise, weakness EENTM: no symptoms reported Respiratory: dyspnea on exertion Cardiovascular: no symptoms reported Gastrointestinal: no symptoms reported Genitourinary: no symptoms reported Musculoskeletal: no symptoms reported Skin: no symptoms reported Psychiatric/Neurological: No Symptoms Reported All Other Systems Reviewed Negative Unless Noted: Yes Physical Exam Physical Exam Vital Signs Vital Signs - First Documented 12/30/21 12/30/21 19:08 23:01 Temp 36.5 Pulse 66 Resp 19 B/P (MAP) 116/55 (75) Pulse Ox 100 O2 Delivery Room Air FiO2 21 Capillary Refill : Less Than 3 Seconds Height, Weight, BMI Height: 6'" Weight: 245lbs. oz. 111.618448pg; 28.59 BMI Method: General Appearance: No Apparent Distress, Chronically ill, Other (Pale) Eyes: Right Eye Normal Inspection, Right Eye PERRL HEENT: PERRL/EOMI, Normal ENT Inspection, Pharynx Normal, Moist Mucous Membranes Neck: Full Range of Motion, Normal Inspection, Non Tender Respiratory: Chest Non Tender, Lungs Clear, Normal Breath Sounds, No Accessory Muscle Use, No Respiratory Distress Cardiovascular: Regular Rate, Rhythm, No Edema, No Gallop, No JVD, No Murmur, Normal Peripheral Pulses Gastrointestinal: Normal Bowel Sounds, No Organomegaly, No Pulsatile Mass, Non Tender, Soft Back: Normal Inspection, No CVA Tenderness, No Vertebral Tenderness Extremity: Normal Capillary Refill, Normal Inspection, Normal Range of Motion, Non Tender, No Calf Tenderness, No Pedal Edema Neurologic/Psychiatric: Alert, Oriented x3, No Motor/Sensory Deficits, Normal Mood/Affect Skin: Normal Color, Warm/Dry Lymphatic: No Adenopathy Results Results/Procedures Labs Laboratory Tests 12/30/21 19:25 12/30/21 21:50 12/31/21 03:41 12/31/21 10:56 12/31/21 19:15 Patient resulted labs reviewed. Assessment/Plan Admission Diagnosis Assessment: Symptomatic anemia Severe iron deficiency Vitamin B12 deficiency Suspected GI bleed Anticoagulation on Xarelto Atrial fibrillation Dementia Plan: Transfuse Scope tomorrow Appreciate Dr. LUNA Appreciate Dr. Carpenter Admission Status: Inpatient Order (span 2 midnights) Reason for Inpatient Admission: Symptomatic anemia Diagnosis/Problems Diagnosis/Problems (1) Acute anemia Status: Acute (2) Dizzy spells Status: Acute (3) Short of breath on exertion Status: Acute (4) Dementia Status: Acute Clinical Quality Measures DVT/VTE Risk/Contraindication: Contraindications-Pharm: Other *list below* Other: SELMA Orr DO December 31, 2021 06:31
[2021-12-31] MEDS: PANTOPRAZOLE 40 MG (PROTONIX) VIAL IV SCH (08:00)
[2021-12-31] MEDS: DOCUSATE SODIUM 100 MG (COLACE) CAP PO SCH ×2 (08:01→20:19)
--- NOTE | 2021-12-31 09:15 | Consultation-Cardiology ---
HPI-Cardiology Cardiology Consultation Date of Consultation 12/31/21 Date of Admission Time Seen by Provider: 09:10 Indication: Anemia HPI 86 years old gentleman, patient is a poor historian, unable to provide full history. Reported that he has been on blood thinners for a long period of time, not sure the exact time or date. Reporting having occasional irregular heartbeat. Does not follow-up with a wire threader, following with Dr. Collins, patient had a syncopal episode, went to the emergency room and noted to have severe anemia. He denied any chest pain, no shortness of breath. No palpitation. Home Medications & Allergies Allergies: Coded Allergies: No Known Drug Allergies (Unverified , 08/20/14) Home Medication List Reviewed: Yes CKE-Uazvwx-Taiydl Hx Patient Social History Employed/Student: retired Smoking Status: Former Smoker 2nd Hand Smoke Exposure: No Recent Hopitalizations: No Have you traveled recently?: No Alcohol Use?: Yes Immunizations Up To Date Tetanus Booster (TDap): Unknown Past Medical History Discussed below Family Medical History Significant Family History: Other Conditions/Hx Family Medical Hx Noncontributory Review of Systems-General Review of Systems Constitutional: see HPI, malaise, weakness EENTM: no symptoms reported Respiratory: see HPI; No cough; dyspnea on exertion; No hemoptysis, No orthopnea, No phlegm, No short of breath, No stridor, No wheezing, No other Cardiovascular: see HPI; No chest pain, No edema, No Hx of Intervention, No palpitations; syncope; No vascular heart diseas, No other Gastrointestinal: no symptoms reported, see HPI; No nausea, No vomiting Genitourinary: no symptoms reported, see HPI Musculoskeletal: no symptoms reported, see HPI Skin: no symptoms reported, see HPI Psychiatric/Neurological: No Symptoms Reported, See HPI Reviewed Test Results Reviewed Test Results Lab Laboratory Tests Test 12/30/21 19:25 12/30/21 19:30 12/30/21 21:50 12/31/21 03:41 Range/Units White Blood Count 8.9 7.3 5.6 4.3-11.0 10^3/uL Red Blood Count 2.05 L 1.85 L 2.07 L 4.30-5.52 10^6/uL Hemoglobin 4.9 *L 4.5 *L 5.1 *L 13.3-17.7 g/dL Hematocrit 17 *L 15 *L 17 *L 40-54 % Mean Corpuscular Volume 82 83 83 80-99 fL Mean Corpuscular Hemoglobin 24 L 24 L 25 25-34 pg Mean Corpuscular Hemoglobin Concent 29 L 29 L 30 L 32-36 g/dL Red Cell Distribution Width 18.4 H 18.4 H 17.5 H 10.0-14.5 % Platelet Count 255 209 194 130-400 10^3/uL Mean Platelet Volume 11.7 11.8 11.7 9.0-12.2 fL Immature Granulocyte % (Auto) 0 0 0 % Neutrophils (%) (Auto) 76 H 77 H 59 42-75 % Lymphocytes (%) (Auto) 13 12 25 12-44 % Monocytes (%) (Auto) 10 10 15 H 0-12 % Eosinophils (%) (Auto) 0 0 0 0-10 % Basophils (%) (Auto) 0 0 1 0-10 % Neutrophils # (Auto) 6.8 5.6 3.3 1.8-7.8 10^3/uL Lymphocytes # (Auto) 1.1 0.9 L 1.4 1.0-4.0 10^3/uL Monocytes # (Auto) 0.9 0.8 0.8 0.0-1.0 10^3/uL Eosinophils # (Auto) 0.0 0.0 0.0 0.0-0.3 10^3/uL Basophils # (Auto) 0.0 0.0 0.0 0.0-0.1 10^3/uL Immature Granulocyte # (Auto) 0.0 0.0 0.0 0.0-0.1 10^3/uL Neutrophils % (Manual) 78 % Lymphocytes % (Manual) 19 % Monocytes % (Manual) 3 % Polychromasia MODERATE Hypochromasia MARKED Poikilocytosis MODERATE Basophilic Stippling MODERATE Anisocytosis MARKED Tear Drop Cells SLIGHT Elliptocytes SLIGHT Sodium Level 142 141 141 135-145 MMOL/L Potassium Level 4.4 4.3 4.3 3.6-5.0 MMOL/L Chloride Level 110 H 112 H 113 H 98-107 MMOL/L Carbon Dioxide Level 16 L 16 L 17 L 21-32 MMOL/L Anion Gap 16 H 13 11 5-14 MMOL/L Blood Urea Nitrogen 30 H 28 H 29 H 7-18 MG/DL Creatinine 1.36 H 1.29 1.32 H 0.60-1.30 MG/DL Estimat Glomerular Filtration Rate 50 53 52 BUN/Creatinine Ratio Glucose Level 141 H 119 H 101 70-105 MG/DL Lactic Acid Level 5.80 *H 2.00 0.50-2.00 MMOL/L Calcium Level 8.9 8.2 L 8.0 L 8.5-10.1 MG/DL Corrected Calcium 9.1 8.7 8.6 8.5-10.1 MG/DL Magnesium Level 2.1 1.6-2.4 MG/DL Total Bilirubin 1.0 1.1 H 1.4 H 0.1-1.0 MG/DL Aspartate Amino Transf (AST/SGOT) 13 11 8 5-34 U/L Alanine Aminotransferase (ALT/SGPT) 7 8 6 0-55 U/L Alkaline Phosphatase 91 75 70 40-136 U/L Troponin I < 0.30 <0.30 NG/ML C-Reactive Protein < 0.30 <0.50 MG/DL Pro-B-Type Natriuretic Peptide 3184.0 H <75.0 PG/ML Total Protein 6.3 L 5.7 L 5.3 L 6.4-8.2 GM/DL Albumin 3.8 3.4 3.2 3.2-4.5 GM/DL Influenza Type A Antigen NEGATIVE NEGATIVE Influenza Type B Antigen NEGATIVE NEGATIVE SARS-CoV-2 RNA (RT-PCR) Negative Not Detecte Prothrombin Time 34.2 H 26.6 H 12.2-14.7 SEC INR Comment 3.3 H 2.4 H 0.8-1.4 Activated Partial Thromboplast Time 45 H 24-35 SEC B-Type Natriuretic Peptide 346.0 H <100.0 PG/ML Physical Exam Physical Exam Vital Signs Vital Signs - First Documented 12/30/21 12/30/21 19:08 23:01 Temp 36.5 Pulse 66 Resp 19 B/P (MAP) 116/55 (75) Pulse Ox 100 O2 Delivery Room Air FiO2 21 Capillary Refill : Less Than 3 Seconds Height, Weight, BMI Height: 6'" Weight: 245lbs. oz. 111.601039hb; 28.59 BMI Method: General Appearance: No Apparent Distress, WD/WN HEENT: PERRL/EOMI, Pharynx Normal Neck: Full Range of Motion, Normal Inspection, Non Tender, Supple Respiratory: Chest Non Tender, Lungs Clear, Normal Breath Sounds, No Accessory Muscle Use, No Respiratory Distress Cardiovascular: Normal Peripheral Pulses, Systolic Murmur, Irregularly Irregular Gastrointestinal: Normal Bowel Sounds, No Pulsatile Mass, Non Tender, Soft Rectal: Normal Rectal Tone, Heme Negative Stool, Other (some dark colored stool present in anal cleft but stool was brown on IKE and was hemoccult negative) Extremity: Normal Capillary Refill, Normal Inspection, No Pedal Edema Neurologic/Psychiatric: Alert, Oriented x3 Skin: Warm/Dry, Pallor A/P-Cardiology Admission Diagnosis Syncope Anemia Atrial fibrillation, persistent Hypertension Assessment/Plan Syncope, probably secondary to severe anemia. Continue to monitor blood pressure, transfuse and monitor H&H Anemia, most probably GI bleed. Patient is maintained on Xarelto as an outpatient. Currently on hold and continue transfusion. Will require upper and lower endoscopy. Atrial fibrillation, probably persistent or permanent, rate is controlled. Continue to monitor closely [id number] score 3, was on Xarelto as an outpatient. Unable to tolerate Xarelto or any anticoagulation due to severe anemia Hypertension, planning to restart home medication and monitor blood pressure Metabolic acidosis, probably secondary to hypotension and anemia Acute renal insufficiency. Receiving IV fluid. Monitor renal function Clinical Quality Measures DVT/VTE Risk/Contraindication: Contraindications-Pharm: Other *list below* Other: CARMELA Shipman MD December 31, 2021 09:14
[2021-12-31] MEDS: NS IV 1000 ML 1,000 ML IV SCH ×2 (11:26→23:53)
[2021-12-31 11:28] LABS: HEMOGLOBIN 5.7 g/dL (13.3-17.7)
--- NOTE | 2021-12-31 13:11 | CONSULTATION REPORT ---
DATE OF SERVICE: ADMITTING PHYSICIAN: Dr. Carter. ATTENDING PRIMARY CARE PHYSICIAN: Dr. Collins. HISTORY OF PRESENT ILLNESS: The patient is an 86-year-old male who presented to [facility] with fatigue, weakness, dizziness as well as shortness of breath. He states that his shortness of breath was significantly worse upon exertion. He was seen in the Emergency Department where labs were drawn and he was found to be severely anemic with a hemoglobin of 4.9. Upon further questioning, he does report a history of gastroesophageal reflux disease as well as possible peptic ulcer disease. He also does have a history of atrial fibrillation and is currently on Xarelto. He also reports that he has noticed darker stools in the past several weeks. He states that he did have a colonoscopy approximately 4 to 5 years ago and does not remember any abnormalities. PAST MEDICAL HISTORY: Atrial fibrillation, hypertension, degenerative joint disease, history of stroke. PAST SURGICAL HISTORY: None stated. ALLERGIES: No known drug allergies. MEDICATIONS: 1. Albuterol inhaler two puffs q.6 hours p.r.n. 2. Augmentin b.i.d. 3. Doxycycline 100 mg b.i.d. 4. Furosemide 20 mg daily. 5. Gabapentin 100 mg q.8 hours. 6. Lisinopril 10 mg daily. 7. Metoprolol 100 mg b.i.d. 8. Potassium 20 mEq daily. 9. Prednisone 20 mg daily. 10. Rivaroxaban 10 mg daily. SOCIAL HISTORY: Negative smoke. Does drink beer daily. FAMILY HISTORY: Noncontributory. REVIEW OF SYSTEMS: A well-nourished male in no acute distress. He does answer majority of questions appropriately; however, is somewhat confused. He does not report any shortness of breath or difficulty breathing. No chest pain, palpitations, diaphoresis. No nausea, vomiting. No hematemesis, no coffee ground emesis. He has had dark tarry stools for the past several weeks. No red blood per rectum. No fever, chills. No recent inadvertent weight loss. All other review of systems negative. PHYSICAL EXAMINATION: VITAL SIGNS: Temperature 36.3, blood pressure 147/77, pulse 58, respirations 20, pulse ox 100% on room air. CHEST: Few scattered rales bilaterally. HEART: Regular, no murmurs. EXTREMITIES: No lower extremity edema, negative Homans sign. HEENT: No scleral icterus. NECK: No cervical lymphadenopathy. ABDOMEN: Soft, nontender, nondistended. SKIN: Warm, dry. LABORATORY DATA: WBC 5.6, hemoglobin 5.1, hematocrit 17, platelets 194. BUN 29, creatinine 1.32. ASSESSMENT AND PLAN: An 86-year-old male with symptomatic anemia with dark tarry stools, most likely indicating upper gastrointestinal source. He is currently being treated with a PPI acid echo technician. Once adequately resuscitated, we will then proceed with EGD as well as a biopsy or intervention as necessary. Job ID: [id number] DocumentID: [id number] Dictated Date: 12/31/2021 09:54:05 Raw Material Handler Date: 12/31/2021 13:10:49 Dictated By: CARLI LUNA MD
--- NOTE | 2021-12-31 16:12 | Progress Note-Pre Operative ---
Pre-Operative Progress Note H&P Reviewed The H&P was reviewed, patient examined and no changes noted. Date Seen by Provider: December 31, 2021 Time Seen by Provider: 16:15 Date H&P Reviewed: December 31, 2021 Time H&P Reviewed: 16:15 Pre-Operative Diagnosis: sx anemia with UGIB CARLI LUNA MD December 31, 2021 16:12
[2021-12-31 19:21] LABS: HEMOGLOBIN 6.6 g/dL (13.3-17.7)
[2022-01-01] VITALS (10 sets, daily range): BP systolic 103–167; BP diastolic 53–82
[2022-01-01] MEDS: NS IV 1000 ML 1,000 ML IV SCH (04:49)
--- NOTE | 2022-01-01 06:18 | Progress Note - Hospitalist ---
Subjective HPI/CC On Admission Date Seen by Provider: January 01, 2022 Time Seen by Provider: 10:00 Chief complaint: Symptomatic anemia History of present illness: This is an 86-year-old white male with a history of dementia and atrial fibrillation on anticoagulation who presented with shortness of breath and weakness and found to have hemoglobin of 4.9. His Hemoccult was negative. Dr. Carpenter and Dr. LUNA were consulted due to suspicion of GI bleed. He received 2 units of packed red blood cells and his hemoglobin is still low so we will give him another unit. He will have a scope tomorrow. Subjective/Events-last exam Patient doing well Hemoglobin 6.6 still No rapid bleeding per rectum Scope today Denies any new issues Patient is hungry IV iron and B12 are given Review of Systems General: Fatigue, Malaise Focused Exam Lactate Level 12/30/21 19:25: Lactic Acid Level 5.80*H 12/30/21 21:50: Lactic Acid Level 2.00 Objective Exam Vital Signs Vital Signs Date Time Temp Pulse Resp B/P (MAP) Pulse Ox O2 Delivery O2 Flow Rate FiO2 01/01/22 11:00 90 Room Air 01/01/22 07:56 36.9 64 18 165/58 (93) 12/30/21 23:01 21 Capillary Refill : Less Than 3 Seconds General Appearance: No Apparent Distress, WD/WN, Chronically ill, Other (Pale) Respiratory: Lungs Clear, Normal Breath Sounds Cardiovascular: Regular Rate, Rhythm Neurologic/Psychiatric: Alert, Oriented x3, No Motor/Sensory Deficits, Normal Mood/Affect Results/Procedures Lab Laboratory Tests 12/31/21 19:15 01/01/22 06:13 Patient resulted labs reviewed. Assessment/Plan Assessment and Plan Assess & Plan/Chief Complaint Assessment: Symptomatic anemia Severe iron deficiency Vitamin B12 deficiency Suspected GI bleed Anticoagulation on Xarelto Atrial fibrillation Dementia Plan: Transfuse Scope tomorrow Appreciate Dr. LUNA Appreciate Dr. Carpenter 01/01/2022: Supportive care Likely will need 1 more unit of blood after scope Given iron and B12 Diagnosis/Problems Diagnosis/Problems (1) Acute anemia Status: Acute (2) Dizzy spells Status: Acute (3) Short of breath on exertion Status: Acute (4) Dementia Status: Acute Clinical Quality Measures DVT/VTE Risk/Contraindication: Contraindications-Pharm: Other *list below* Other: ALTHEA Orr DO January 01, 2022 06:18
[2022-01-01 06:29] LABS: BASOPHILS % (AUTO) 1 % (0-10); EOSINOPHILS # (AUTO) 0.1 10^3/uL (0.0-0.3); EOSINOPHILS % (AUTO) 1 % (0-10); HEMATOCRIT 21 % (40-54); LYMPHOCYTES # (AUTO) 1.3 10^3/uL (1.0-4.0); LYMPHOCYTES % (AUTO) 23 % (12-44); MEAN CORPUSCULAR HGB CONC 31 g/dL (32-36); MEAN CORPUSCULAR VOLUME 83 fL (80-99); MEAN PLATELET VOLUME 11.6 fL (9.0-12.2); MONOCYTES # (AUTO) 0.8 10^3/uL (0.0-1.0); MONOCYTES % (AUTO) 14 % (0-12); NEUTROPHILS # (AUTO) 3.3 10^3/uL (1.8-7.8); NEUTROPHILS % (AUTO) 60 % (42-75); PLATELET COUNT 169 10^3/uL (130-400); WHITE BLOOD COUNT 5.5 10^3/uL (4.3-11.0)
[2022-01-01 06:36] LABS: ALBUMIN 3.1 GM/DL (3.2-4.5)
[2022-01-01 06:37] LABS: POTASSIUM 4.1 MMOL/L (3.6-5.0)
[2022-01-01 06:38] LABS: CALCIUM 7.9 MG/DL (8.5-10.1)
[2022-01-01 06:39] LABS: TOTAL PROTEIN 5.2 GM/DL (6.4-8.2)
[2022-01-01 06:40] LABS: INR 1.4 (0.8-1.4); PROTHROMBIN TIME PATIENT 17.4 SEC (12.2-14.7)
[2022-01-01 06:41] LABS: BILIRUBIN,TOTAL 2.4 MG/DL (0.1-1.0); HEMOGLOBIN 6.6 g/dL (13.3-17.7); MEAN CORPUSCULAR HEMOGLOBIN 25 pg (25-34)
[2022-01-01 06:43] LABS: CREATININE SERUM 1.11 MG/DL (0.60-1.30)
[2022-01-01] MEDS ORDERED: CYANOCOBALAMIN INJ 1000 MCG/ML IM ONE (07:00)
[2022-01-01] MEDS: PANTOPRAZOLE 40 MG (PROTONIX) VIAL IV SCH (08:43)
[2022-01-01] MEDS: DOCUSATE SODIUM 100 MG (COLACE) CAP PO SCH ×2 (08:43→21:08)
[2022-01-01] MEDS: IRON SUCROSE 200 MG/10 ML (VENOFER) VIAL IV SCH (08:43)
--- NOTE | 2022-01-01 09:37 | Cardiology Progress Note ---
Subjective Date Seen by Provider: January 01, 2022 Time Seen by Provider: 08:45 Subjective/Events-last exam Patient is sitting up in bed, denies any chest pain or dyspnea. Planning for EGD today Review of Systems General: No Chills, No Night Sweats; Fatigue, Malaise; No Appetite, No Other HEENT: No Head Aches, No Visual Changes, No Eye Pain, No Ear Pain, No Dysphasia, No Sinus Congestion, No Post Nasal Drip, No Sore Throat, No Other Pulmonary: Dyspnea; No Cough, No Pleuritic Chest Pain, No Other Cardiovascular: No: Chest Pain, Palpitations, Orthopnea, Paroxysmal Noc. Dyspnea, Edema, Lt Headedness, Other Focused Exam Lactate Level 12/30/21 19:25: Lactic Acid Level 5.80*H 12/30/21 21:50: Lactic Acid Level 2.00 Objective-Cardiology Exam Last Set of Vital Signs Vital Signs 12/30/21 01/01/22 23:01 07:56 Temp 36.9 Pulse 64 Resp 18 B/P (MAP) 165/58 (93) Pulse Ox 94 O2 Delivery Room Air FiO2 21 I&O Intake and Output 01/01/22 00:00 Intake Total 2070 ml Output Total 1100 ml Balance 970 ml Intake Oral 1995 ml Other 75 ml Output Urine Total 1100 ml Daily Weight Change No General: Alert, Oriented X3, Cooperative HEENT: Atraumatic, PERRLA Neck: Supple Lungs: Clear to Auscultation, Normal Air Movement Heart: Normal S1, Normal S2, Other (irregularly irregular) Abdomen: Soft, No Tenderness Extremities: No Edema Skin: No Rashes, No Significant Lesion Neuro: Normal Speech Psych/Mental Status: Mental Status NL, Mood NL Results Lab Laboratory Tests 12/31/21 10:56 12/31/21 19:15 01/01/22 06:13 A/P-Cardiology Admission Diagnosis Syncope Anemia Atrial fibrillation, persistent Hypertension Assessment/Plan Syncope, probably secondary to severe anemia. Continue to monitor blood pressure, transfuse and monitor H&H Anemia, most probably GI bleed. Patient is maintained on Xarelto as an outpatient. Currently on hold and continue transfusion. Planning for endoscopy to be done later today. Atrial fibrillation, probably persistent or permanent, rate is controlled. Continue to monitor closely [id number] score 3, was on Xarelto as an outpatient. Unable to tolerate Xarelto or any anticoagulation due to severe anemia Hypertension, continue to monitor. Metabolic acidosis, probably secondary to hypotension and anemia Acute renal insufficiency. Receiving IV fluid. Monitor renal function Supervisory-Addendum Brief Supervisory Addendum Participated in pt care: history, MDM, physical Personally performed: exam, history, MDM Care discussed with: ZAKIA Results interpretation: Verified all documentation Notes: Patient was seen and evaluated with Vickie, examination performed, management plan was discussed, agree with the current scribed note, I made few changes to the note using Italic font Patient was seen at bedside, sitting comfortably Scheduled for EGD today No new complaint. Continue to monitor VICKIE CARDONA January 01, 2022 09:37 CARMELA MARTELL MD January 01, 2022 10:52
[2022-01-01] MEDS ORDERED: PROPOFOL INJECTION 50 ML IV ONE (14:50)
[2022-01-01] MEDS ORDERED: LACTATED RINGERS 1,000 ML IV STA (15:33)
[2022-01-01] MEDS ORDERED: LACTATED RINGERS 1,000 ML IV ONE (15:37)
[2022-01-01] MEDS ORDERED: HURRICAINE EXT TUBE (BENZOCAINE) XX PRN (15:45)
[2022-01-01] MEDS ORDERED: LIDOCAINE JELLY 2% 6 ML SYRINGE MM PRN (15:45)
--- NOTE | 2022-01-01 17:02 | Progress Note-Post Operative ---
Post-Operative Progess Note Surgeon (s)/Aircraft Structure Mechanic (s) Surgeon CARLI LUNA MD Aircraft Structure Mechanic: none Pre-Operative Diagnosis sx anemia with UGIB Post-Operative Diagnosis reflux esophagitis(grade C), grade 2 esophageal varices, small-mod HH(2.5cm), moderate gastritis. no active bleeding. Procedure & Operative Findings Date of Procedure 01/01/22 Procedure Performed/Findings EGD with bx. Anesthesia Type mac Estimated Blood Loss Estimated blood loss (mL): minimal Specimens/Packing Specimens Removed ge jxn, antrum CARLI LUNA MD January 01, 2022 17:02
--- NOTE | 2022-01-01 21:36 | OPERATIVE REPORT ---
DATE OF SERVICE: 01/01/2022 ATTENDING PRIMARY CARE PHYSICIAN: Dr. Collins. ADMITTING PHYSICIAN: Dr. Carter. PREOPERATIVE DIAGNOSES: Anemia with dark tarry stools with history of coronary artery disease. POSTOPERATIVE DIAGNOSES: Reflux esophagitis [place] grade C, grade II esophageal varices, not actively bleeding. Small to moderate size hiatal hernia approximately 2.5 cm in size, very small antral erosion. No active bleeding. PROCEDURE: EGD with biopsy. SURGEON: Carli Main MD ANESTHESIA: Monitored anesthesia care. ESTIMATED BLOOD LOSS: Minimal. FINDINGS: Same as postoperative diagnoses. DISPOSITION: The patient tolerated the procedure well. INDICATIONS: The patient is an 86-year-old male who presented with profound fatigue as well as shortness of breath. He had reported that the shortness of breath was also much more significant upon exertion. He was found to be severely anemic with a hemoglobin in the 4 range. Since being admitted, he was given 3 units of packed red blood cells and his hemoglobin is currently around 6.6. Upon further questioning, he reports that he has had dark tarry stools on an intermittent basis for the past several weeks. He also reports that he did have a colonoscopy approximately 4 years ago and does not remember any abnormalities. DESCRIPTION OF PROCEDURE: The patient was brought to the endoscopy suite, laid in the left lateral decubitus position. After adequate IV pain and sedative medications and monitored anesthesia care, the mouthpiece was applied. The endoscope was placed in the mouth, visualizing the pharynx and hypopharyngeal region. Vocal cords, epiglottis and vallecula identified and appeared to be normal. The endoscope was gently intubated the esophageal opening and esophagus insufflated. The endoscope was then advanced to the first, second and third portion of esophagus at the level of the GE junction, a reflux esophagitis [place] grade C identified. There was also grade II esophageal varices that were not actively bleeding. This likely indicates some level of the portal venous hypertension and likely liver cirrhosis. The endoscope was then advanced in the stomach and endoscope retroflexed, visualizing a small to moderate size hiatal hernia approximately 2.5 cm in size. There was a moderate severity gastritis with a small area of an antral erosion with no active bleeding. The antrum was biopsied using forceps to rule out H. pylori with visualization of good hemostasis. The endoscope was advanced to the pylorus and first and second portion of the duodenum, which appeared normal with no ulcerations or any active bleeding sources. The endoscope was then slowly withdrawn while taking a second look and suctioning of residual air with no additional findings. The patient tolerated the procedure well. We feel that the most likely etiology of his bleeding is due to esophageal varices and undiagnosed liver cirrhosis and portal hypertension. From a standpoint of medical management, we will start him on Protonix 40 mg daily and it may be of benefit to start him on a nonselective beta andres like propranolol. The recommended therapy for esophageal varices with the best results encompasses esophageal banding of the varices; however, we would have to refer this patient to an endoscopic specialist for this. For now, we will also recommend a low sodium, low fat diet as well as a water restrictions to 1.5 to 2 liters daily. Job ID: [id number] DocumentID: [id number] Dictated Date: 01/01/2022 16:58:10 Packing Line Operator Date: 01/01/2022 21:35:57 Dictated By: CARLI MAIN MD MTDD
[2022-01-02] VITALS (11 sets, daily range): BP systolic 123–170; BP diastolic 63–99
[2022-01-02] MEDS: NS IV 1000 ML 1,000 ML IV SCH ×2 (00:09→12:10)
--- NOTE | 2022-01-02 05:22 | Progress Note - Hospitalist ---
Subjective HPI/CC On Admission Date Seen by Provider: January 02, 2022 Time Seen by Provider: 10:00 Chief complaint: Symptomatic anemia History of present illness: This is an 86-year-old white male with a history of dementia and atrial fibrillation on anticoagulation who presented with shortness of breath and weakness and found to have hemoglobin of 4.9. His Hemoccult was negative. Dr. Carpenter and Dr. LUNA were consulted due to suspicion of GI bleed. He received 2 units of packed red blood cells and his hemoglobin is still low so we will give him another unit. He will have a scope tomorrow. Subjective/Events-last exam Pt is receiving one more unit of blood PT and OT will be ordered Dementia is significant He lives with daughter and will need HH at discharge Likely discharge tomorrow Review of Systems General: Fatigue, Malaise Focused Exam Lactate Level Objective Exam Vital Signs Vital Signs Date Time Temp Pulse Resp B/P (MAP) Pulse Ox O2 Delivery O2 Flow Rate FiO2 01/03/22 04:10 88 18 141/63 (89) 93 Room Air 01/02/22 23:53 36.2 01/02/22 07:28 0.00 12/30/21 23:01 21 Capillary Refill : Less Than 3 Seconds General Appearance: No Apparent Distress, WD/WN Respiratory: Lungs Clear, Normal Breath Sounds Cardiovascular: Regular Rate, Rhythm Neurologic/Psychiatric: Alert, Oriented x3 Results/Procedures Lab Laboratory Tests 01/02/22 05:42 01/02/22 14:42 Patient resulted labs reviewed. Assessment/Plan Assessment and Plan Assess & Plan/Chief Complaint Assessment: Symptomatic anemia Severe iron deficiency Vitamin B12 deficiency Suspected GI bleed Anticoagulation on Xarelto Atrial fibrillation Dementia Plan: Transfuse Scope tomorrow Appreciate Dr. LUNA Appreciate Dr. Carpenter 01/01/2022: Supportive care Likely will need 1 more unit of blood after scope Given iron and B12 01/02/2022: Supportive care IV iron Diagnosis/Problems Diagnosis/Problems (1) Acute anemia Status: Acute (2) Dizzy spells Status: Acute (3) Short of breath on exertion Status: Acute (4) Dementia Status: Acute Clinical Quality Measures DVT/VTE Risk/Contraindication: Contraindications-Pharm: Other *list below* Other: ALTHEA Orr DO January 02, 2022 05:22
[2022-01-02 06:01] LABS: BASOPHILS % (AUTO) 0 % (0-10); EOSINOPHILS % (AUTO) 0 % (0-10); HEMATOCRIT 22 % (40-54); LYMPHOCYTES # (AUTO) 0.9 10^3/uL (1.0-4.0); LYMPHOCYTES % (AUTO) 8 % (12-44); MEAN CORPUSCULAR HEMOGLOBIN 25 pg (25-34); MEAN CORPUSCULAR HGB CONC 31 g/dL (32-36); MEAN CORPUSCULAR VOLUME 82 fL (80-99); MEAN PLATELET VOLUME 12.5 fL (9.0-12.2); MONOCYTES # (AUTO) 1.3 10^3/uL (0.0-1.0); MONOCYTES % (AUTO) 11 % (0-12); NEUTROPHILS # (AUTO) 9.9 10^3/uL (1.8-7.8); NEUTROPHILS % (AUTO) 80 % (42-75); PLATELET COUNT 196 10^3/uL (130-400); WHITE BLOOD COUNT 12.3 10^3/uL (4.3-11.0)
[2022-01-02 06:03] LABS: HEMOGLOBIN 6.9 g/dL (13.3-17.7)
[2022-01-02 06:06] LABS: INR 1.3 (0.8-1.4); PROTHROMBIN TIME PATIENT 16.5 SEC (12.2-14.7)
[2022-01-02 06:15] LABS: ALBUMIN 3.2 GM/DL (3.2-4.5)
[2022-01-02 06:16] LABS: POTASSIUM 3.8 MMOL/L (3.6-5.0)
[2022-01-02 06:17] LABS: CALCIUM 7.9 MG/DL (8.5-10.1)
[2022-01-02 06:18] LABS: TOTAL PROTEIN 5.6 GM/DL (6.4-8.2)
[2022-01-02 06:20] LABS: BILIRUBIN,TOTAL 2.6 MG/DL (0.1-1.0)
[2022-01-02 06:22] LABS: CREATININE SERUM 1.08 MG/DL (0.60-1.30)
[2022-01-02] MEDS: CYANOCOBALAMIN 1,000 MCG (VITAMIN B-12) TABLET PO SCH (06:44)
[2022-01-02] MEDS ORDERED: NS IV 500 ML 500 ML IV SCH (06:45)
--- NOTE | 2022-01-02 08:40 | Cardiology Progress Note ---
Subjective Date Seen by Provider: January 02, 2022 Time Seen by Provider: 08:39 Subjective/Events-last exam Patient was seen at bedside, laying down in bed, feeling better. Review of Systems General: No Chills, No Night Sweats; Fatigue; No Malaise, No Appetite, No Other HEENT: No Head Aches, No Visual Changes, No Eye Pain, No Ear Pain, No Dysphasia, No Sinus Congestion, No Post Nasal Drip, No Sore Throat, No Other Pulmonary: No Dyspnea, No Cough, No Pleuritic Chest Pain, No Other Cardiovascular: No: Chest Pain, Palpitations, Orthopnea, Paroxysmal Noc. Dyspnea, Edema, Lt Headedness, Other Focused Exam Lactate Level 12/30/21 19:25: Lactic Acid Level 5.80*H 12/30/21 21:50: Lactic Acid Level 2.00 Objective-Cardiology Exam Last Set of Vital Signs Vital Signs 12/30/21 01/02/22 01/02/22 23:01 07:28 08:25 Temp 37.6 Pulse 97 Resp 18 B/P (MAP) 161/99 (119) Pulse Ox 97 O2 Delivery Room Air O2 Flow Rate 0.00 FiO2 21 I&O Intake and Output 01/02/22 00:00 Intake Total 1680 ml Output Total 1400 ml Balance 280 ml Intake Oral 480 ml IV Total 1200 ml Output Urine Total 1400 ml General: Alert, Oriented X3, Cooperative HEENT: Atraumatic, PERRLA Neck: Supple Lungs: Clear to Auscultation, Normal Air Movement Heart: Normal S1, Normal S2, Other (irregularly irregular) Abdomen: Soft, No Tenderness Extremities: No Edema Skin: No Rashes, No Significant Lesion Neuro: Normal Speech Psych/Mental Status: Mental Status NL, Mood NL Results Lab Laboratory Tests 01/02/22 05:42 A/P-Cardiology Admission Diagnosis Syncope Anemia Atrial fibrillation, persistent Hypertension Assessment/Plan Syncope, probably secondary to severe anemia. Continue to monitor blood pressure, transfuse and monitor H&H Anemia, most probably GI bleed. Patient is maintained on Xarelto as an outpatient. Currently on hold and continue transfusion. Status post upper endoscopy done by Dr. Main on January 01, 2022 reported as esophageal varices and a small peptic ulcer disease. Managed by medical team Atrial fibrillation, probably persistent or permanent, rate is controlled. Continue to monitor closely [id number] score 3, was on Xarelto as an outpatient. Unable to tolerate Xarelto or any anticoagulation due to severe anemia Hypertension, continue to monitor. Metabolic acidosis, probably secondary to hypotension and anemia Acute renal insufficiency. Receiving IV fluid. Monitor renal function CARMELA MARTELL MD January 02, 2022 08:40
[2022-01-02] MEDS ORDERED: FUROSEMIDE 40 MG/4 ML INJ (LASIX) IVP ONE (09:00)
[2022-01-02] MEDS: PANTOPRAZOLE 40 MG (PROTONIX) VIAL IV SCH (09:53)
[2022-01-02] MEDS: DOCUSATE SODIUM 100 MG (COLACE) CAP PO SCH ×2 (09:53→20:25)
--- NOTE | 2022-01-02 11:08 | Occupational Therapy Eval ---
OT Evaluation-General/PLF Medical Diagnosis Admission Date Dec 30, 2021 at 21:39 Medical Diagnosis: acute anemia Onset Date: Dec 30, 2021 Therapy Diagnosis Therapy Diagnosis: reduced adl status Height/Weight Height (Feet): 6 Weight (Pounds): 245 Precautions Precautions/Isolations: Fall Prevention, Standard Precautions Referral Physician: grace Baker Reason: Evaluation/Treatment Medical History Pertinent Medical History: Atrial Fib, Dementia Current History Pt presents to hospital with SOB and weakness. Found to have hemoglobin of 4.9 with suspected GI blood. EGD performed 01/01. Per patient, he lives with his daughter in a modular home. He was indep with adls and his daughter completed all the IADLs. Pt uses a cane at baseline. Reviewed History: Yes Social History Home: Single Level Current Living Status: Children ADL-Prior Level of Function SCALE: Activities may be completed with or without assistive devices. 3-Owzeqnpyzj-razgebu completes the activity by him/herself with no assistance from a helper. 5-Set-up or Clean-up Assistance-helper sets up or cleans up; patient completes activity. [place] assists only prior to or following the activity. 4-Supervision or Touching Assistance-helper provides verbal cues and/or touching/steadying and/or contact guard assistance as patient completes activity. Assistance may be provided throughout the activity or intermittently. 3-Partial/Moderate Assistance-helper does LESS THAN HALF the effort. [place] lifts, holds or supports trunk or limbs, but provides less than half the effort. 2-Substantial/Maximal Assistance-helper does MORE THAN HALF the effort. [place] lifts or holds trunk or limbs and provides more than half the effort. 8-Sfmzqgxdz-sjeeeg does ALL the effort. Patient does none of the effort to complete the activity. Or, the assistance of 2 or more helpers is required for the patient to complete the activity. If activity was not attempted, code reason: 7-Patient Refused. 9-Not Applicable-not attempted and the patient did not perform the activity before the current illness, exacerbation or injury. 10-Not Attempted due to Environmental Limitations-(lack of equipment, weather restraints, etc.). 88-Not Attempted due to Medical Conditions or Safety Concerns. Self Care: Independent Functional Cognition: Needed Some Help DME/Equipment: Bath Chair, Grab Bars, Shower Drive Self: Yes OT Current Status Subjective Pt sleeping at OT arrival, easy to waken. Agreeable to eval. Appearance Pt left supine in bed, all needs within reach, RN notified. Mental Status/Objective Patient Orientation: Person, Place Attachments: Méndez Catheter, IV Current Glasses/Contacts: Yes Upper Extremity ROM ~160 degrees bilateral shoulder AROM. Pt wincing with movement but denies pain. 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 Last Hgb labs: 6.9. RN in agreement with eval but requests bed level only. Pt completed bridging at hips 3x2 with extra effort and time. Pt fatigues very quickly and requires a lengthy rest break in between each bout. Rolling R/L x1 each with extra time and use of bed rail. Min a needed to roll completely onto R side. SOA observed with limited activity. Cues for PLB. SBA to wash face, cues to wash all sides. At this time, anticipate assist needed for adls secondary to quick fatigue with limited activity. Ongoing assessment needed. Education OT Patient Education: Correct positioning, Modified ADL techniques, Purpose of tx/functional activities, Safety issues, Transfer techniques Teaching Recipient: Patient Teaching Methods: Discussion Response to Teaching: Verbalize Understanding, Return Demonstration, Reinforcement Needed OT Assisted Goals Bottle Label Inspector Goals Time Frame: January 16, 2022 Oral Hygiene (QC): 5 Toileting Hygiene (QC): 4 Shower/Bathe Self (QC): 4 Upper Body Dressing (QC): 4 Lower Body Dressing (QC): 4 On/Off Footwear (QC): 4 1=Demonstrate adherence to instructed precautions during ADL tasks. 2=Patient will verbalize/demonstrate understanding of assistive devices/modifications for ADL. 3=Patient will improve strength/tolerance for activity to enable patient to perform ADL's. OT Education/Plan Problem List/Assessment Assessment: Decreased Activ Tolerance, Decreased Safety Aware, Decreased UE Strength, Impaired Bed Mobility, Impaired Cognition, Impaired Funct Balance, Impaired Self-Care Skills, Restricted Funct UE ROM Discharge Recommendations Plan/Recommendations: Continue POC Target Placement ongoing assessment warranted Treatment Plan/Plan of Care Treatment,Training & Education: Yes Patient would benefit from OT for education, treatment and training to promote independence in ADL's, mobility, safety and/or upper extremity function for ADL's. Plan of Care: ADL Retraining, Functional Mobility, Group Exercise/Act as Ind, UE Funct Exercise/Act Treatment Duration: January 16, 2022 Frequency: 3 times per week (3-5x/week) Estimated Hrs Per Day: .25 hour per day Time/GCodes Start Time: 10:44 Stop Time: 10:56 Total Time Billed (hr/min): 12 Billed Treatment Time 1 visit Sandie Mahan OT January 02, 2022 11:08
--- NOTE | 2022-01-02 13:38 | Physical Therapy Evaluation ---
PT Evaluation-General Medical Diagnosis Admission Date Dec 30, 2021 at 21:39 Medical Diagnosis: acute anemia Onset Date: Dec 30, 2021 Therapy Diagnosis Therapy Diagnosis: generalized weakness/impaired mobility Height/Weight Height (Feet): 6 Weight (Pounds): 245 Precautions Precautions/Isolations: Fall Prevention, Standard Precautions Referral Physician: Emma Reason for Referral: Evaluation/Treatment Medical History Pertinent Medical History: Atrial Fib, CVA, Dementia, HTN Current History ER secondary to dizziness and SOB Reviewed History: Yes Social History Home: Single Level Current Living Status: Children Entry Into Home: Stairs With Railing PT Steps Into Home: 3 Prior Prior Level of Function SCALE: Activities may be completed with or without assistive devices. 9-Rdmdwwntqk-gayfvbx completes the activity by him/herself with no assistance from a helper. 5-Set-up or Clean-up Assistance-helper sets up or cleans up; patient completes activity. [place] assists only prior to or following the activity. 4-Supervision or Touching Assistance-helper provides verbal cues and/or touching/steadying and/or contact guard assistance as patient completes activity. Assistance may be provided throughout the activity or intermittently. 3-Partial/Moderate Assistance-helper does LESS THAN HALF the effort. [place] lifts, holds or supports trunk or limbs, but provides less than half the effort. 2-Substantial/Maximal Assistance-helper does MORE THAN HALF the effort. [place] lifts or holds trunk or limbs and provides more than half the effort. 3-Fpqgvxtln-ndetff does ALL the effort. Patient does none of the effort to complete the activity. Or, the assistance of 2 or more helpers is required for the patient to complete the activity. If activity was not attempted, code reason: 7-Patient Refused. 9-Not Applicable-not attempted and the patient did not perform the activity before the current illness, exacerbation or injury. 10-Not Attempted due to Environmental Limitations-(lack of equipment, weather restraints, etc.). 88-Not Attempted due to Medical Conditions or Safety Concerns. Bed Mobility: 6 Transfers (B,C,W/C): 6 Gait: 6 Stairs: 6 Prior Devices Use: Other-see list below Prior Device Use: cane PT Evaluation-Current Subjective Patient is very sleepy. Finally wakes up enough to participate with PT. Objective Patient Orientation: Person ROM/Strength ROM Lower Extremities bilateral LE WFL Strength Lower Extremities 3/5 grossly bilateral LE Integumentary/Posture Bladder Incontinence: De Oliveira Cath Posture WFL Neuromuscular (Tone, Coordination, Reflexes) grossly intact Sensory Vision: Wears Glasses Hearing: Impaired Transfers Lying to Sitting/Side of Bed(Q: 3 Sit to Stand (QC): 3 Chair/Wkn-ux-Hchso Xfer(QC): 3 Gait Mode of Locomotion: Walk Anticipated Mode of Locomotion: Walk Walk 10 feet (QC): 3 Walk 50 ft with 2 Turns(QC): 88 Distance: 15' Gait Assistive Device: FWW Comments/Gait Description slightly unsteady with PT correct Balance Sitting Static: Fair Sitting Dynamic: Fair Standing Static: Fair Standing Dynamic: Poor Assessment/Needs Patient has received 3-4 units of blood due to critically low Hgb. Patient displays increase in weakness and impaired mobility requiring mod assist with all mobility. Patient up in recliner with lunch in situ. RN present during session. Rehab Potential: Fair PT Fci Goals Fci Goals PT Fci Goals Time Frame: January 13, 2022 Roll Left & Right (QC): 6 Sit to Lying (QC): 6 Lying-Sitting on Side/Bed(QC): 6 Sit to Stand (QC): 4 Chair/Ljg-bf-Hlihq Xfer(QC): 4 Toilet Transfer (QC): 4 Walk 10 feet (QC): 4 Walk 50ft with 2 Turns (QC): 4 Walk 150 ft (QC): 4 PT Plan Problem List Problem List: Activity Tolerance, Functional Strength, Safety, Balance, Gait, Transfer, Bed Mobility Treatment/Plan Treatment Plan: Continue Plan of Care Treatment Plan: Bed Mobility, Education, Functional Activity Russell, Functional Strength, Gait, Safety, Therapeutic Exercise, Transfers Treatment Duration: January 13, 2022 Frequency: 6 times per week Estimated Hrs Per Day: .25 hour per day Time/GCodes Time In: 1255 Time Out: 1310 Total Billed Treatment Time: 15 Total [facility] AVELINA CHAVEZ PT January 02, 2022 13:38
[2022-01-02] MEDS: KCL 20 MEQ TAB (K-DUR) PO SCH ×2 (13:44→17:40)
[2022-01-02 14:50] LABS: HEMOGLOBIN 7.7 g/dL (13.3-17.7)
--- NOTE | 2022-01-02 15:21 | Physician Query Clarification ---
Physician Query-General Query to Physician: The medical record reflects the following clinical evidence: Clinical Indicators: HGB 4.9 on admission with "Suspicion of GI Bleed", Per EGD small antral erosion and Reflux esophagitis, with no active bleeding. Report of Dark Tarry stools intermittent basis for the past several weeks, Per cardiology note "was on Xarelto as an outpatient. Unable to tolerate Xarelto or any anticoagulation due to severe anemia" Risk Factor(s): On Xaralto with Hx of A. fib and CVA, Treatment: 4 units of Leuko reduced RBC's, Xaralto stopped, Surgery consult with EGD 1. GI Bleed/hemorrhage likely due to intrinsic circulating anticoagulants 2. Other explanation of clinical findings 3. Unable to determine (no explanation for clinical findings) Please clarify and document your clinical opinion in the progress notes and discharge summary including the definitive and/or presumptive diagnosis, (suspected or probable), related to the above clinical findings. Please include clinical findings supporting your diagnosis. Teresa Morse MSN, RN Clinical Laborer [place] [phone] [email or web address] PHYSICIAN RESPONSE: Based on the clinical findings in the record, please respond to the query above on this document as an addendum. Physician Response: Physician Response 1 If you have questions please contact: X Ray Examiner Of Aircraft: Ext: Thank you for your time and cooperation. Clinical Laborer [place]/X Ray Examiner Of Aircraft This is a permanent part of the medical record TERESA MORSE January 02, 2022 15:21 ALTHEA VALENTINE DO January 02, 2022 18:49
[2022-01-02] MEDS ORDERED: OMEG100032 PO (16:14)
[2022-01-02] MEDS ORDERED: RIVA20TA PO (16:14)
[2022-01-02] MEDS ORDERED: ATOR10TA66 PO (16:14)
[2022-01-03] VITALS (8 sets, daily range): BP systolic 101–145; BP diastolic 59–70
[2022-01-03] MEDS: NS IV 1000 ML 1,000 ML IV SCH ×2 (00:46→09:45)
[2022-01-03] MEDS: ACETAMINOPHEN 325 MG TABLET PO PRN (03:13)
[2022-01-03] MEDS: CYANOCOBALAMIN 1,000 MCG (VITAMIN B-12) TABLET PO SCH (05:09)
[2022-01-03 05:19] LABS: BASOPHILS % (AUTO) 0 % (0-10); EOSINOPHILS # (AUTO) 0.1 10^3/uL (0.0-0.3); EOSINOPHILS % (AUTO) 1 % (0-10); HEMATOCRIT 23 % (40-54); HEMOGLOBIN 7.1 g/dL (13.3-17.7); LYMPHOCYTES # (AUTO) 0.9 10^3/uL (1.0-4.0); LYMPHOCYTES % (AUTO) 9 % (12-44); MEAN CORPUSCULAR HEMOGLOBIN 26 pg (25-34); MEAN CORPUSCULAR HGB CONC 31 g/dL (32-36); MEAN CORPUSCULAR VOLUME 83 fL (80-99); MEAN PLATELET VOLUME 11.5 fL (9.0-12.2); MONOCYTES # (AUTO) 1.3 10^3/uL (0.0-1.0); MONOCYTES % (AUTO) 13 % (0-12); NEUTROPHILS # (AUTO) 7.6 10^3/uL (1.8-7.8); NEUTROPHILS % (AUTO) 78 % (42-75); PLATELET COUNT 148 10^3/uL (130-400); WHITE BLOOD COUNT 9.9 10^3/uL (4.3-11.0)
[2022-01-03 05:32] LABS: INR 1.3 (0.8-1.4); PROTHROMBIN TIME PATIENT 16.5 SEC (12.2-14.7)
[2022-01-03 05:33] LABS: ALBUMIN 2.9 GM/DL (3.2-4.5); POTASSIUM 3.5 MMOL/L (3.6-5.0)
[2022-01-03 05:34] LABS: CALCIUM 7.9 MG/DL (8.5-10.1)
[2022-01-03 05:37] LABS: BILIRUBIN,TOTAL 2.8 MG/DL (0.1-1.0)
[2022-01-03 05:39] LABS: CREATININE SERUM 1.13 MG/DL (0.60-1.30)
--- NOTE | 2022-01-03 05:56 | Progress Note - Hospitalist ---
Subjective HPI/CC On Admission Date Seen by Provider: January 03, 2022 Time Seen by Provider: 10:00 Chief complaint: Symptomatic anemia History of present illness: This is an 86-year-old white male with a history of dementia and atrial fibrillation on anticoagulation who presented with shortness of breath and weakness and found to have hemoglobin of 4.9. His Hemoccult was negative. Dr. Carpenter and Dr. LUNA were consulted due to suspicion of GI bleed. He received 2 units of packed red blood cells and his hemoglobin is still low so we will give him another unit. He will have a scope tomorrow. Subjective/Events-last exam Pt is doing a lot better Giving one more unit of blood Hemoglobin was 7.1 Discharge planned for Working with therapy and getting stronger Will discontinue catheter and be able to void on his own Review of Systems General: Fatigue, Malaise Objective Exam Vital Signs Vital Signs Date Time Temp Pulse Resp B/P (MAP) Pulse Ox O2 Delivery O2 Flow Rate FiO2 01/04/22 04:05 37.4 77 18 146/70 (95) 95 Room Air 01/02/22 07:28 0.00 12/30/21 23:01 21 Capillary Refill : Less Than 3 Seconds General Appearance: No Apparent Distress, WD/WN, Chronically ill Respiratory: Lungs Clear, Normal Breath Sounds Cardiovascular: Regular Rate, Rhythm Neurologic/Psychiatric: Alert, Oriented x3, Disoriented Results/Procedures Lab Laboratory Tests 01/03/22 14:55 Patient resulted labs reviewed. Assessment/Plan Assessment and Plan Assess & Plan/Chief Complaint Assessment: Symptomatic anemia status post 5 units of blood Severe iron deficiency Vitamin B12 deficiency Suspected GI bleed Anticoagulation on Xarelto Atrial fibrillation Dementia Urinary retention status post De Oliveira catheter discontinuation Plan: Transfuse Scope tomorrow Appreciate Dr. LUNA Appreciate Dr. Carpenter 01/01/2022: Supportive care Likely will need 1 more unit of blood after scope Given iron and B12 01/02/2022: Supportive care IV iron 01/03/2022: Urinary retention management Monitor hemoglobin Supportive care Diagnosis/Problems Diagnosis/Problems (1) Acute anemia Status: Acute (2) Dizzy spells Status: Acute (3) Short of breath on exertion Status: Acute (4) Dementia Status: Acute Clinical Quality Measures DVT/VTE Risk/Contraindication: Contraindications-Pharm: Other *list below* Other: ALTHEA Orr 4, 2022 05:56
[2022-01-03] MEDS ORDERED: NS IV 500 ML 500 ML IV SCH ×2 (06:00)
[2022-01-03] MEDS: KCL 20 MEQ TAB (K-DUR) PO SCH ×2 (08:50→18:23)
[2022-01-03] MEDS: DOCUSATE SODIUM 100 MG (COLACE) CAP PO SCH ×2 (08:50→21:25)
[2022-01-03] MEDS: IRON SUCROSE 200 MG/10 ML (VENOFER) VIAL IV SCH (08:51)
[2022-01-03] MEDS: PANTOPRAZOLE 40 MG (PROTONIX) VIAL IV SCH (08:51)
--- NOTE | 2022-01-03 10:21 | Cardiology Progress Note ---
Subjective Date Seen by Provider: January 03, 2022 Time Seen by Provider: 08:40 Subjective/Events-last exam Patient is sitting up in bed, denies any chest pain or dyspnea. Objective-Cardiology Exam Last Set of Vital Signs Vital Signs 12/30/21 01/02/22 01/03/22 23:01 07:28 12:20 Temp 37.5 Pulse 84 Resp 20 B/P (MAP) 101/59 Pulse Ox 96 O2 Delivery Room Air O2 Flow Rate 0.00 FiO2 21 I&O Intake and Output 01/03/22 00:00 Intake Total 1360 ml Output Total 4375 ml Balance -3015 ml Intake Oral 1360 ml Output Urine Total 4375 ml General: Alert, Oriented X3, Cooperative HEENT: Atraumatic, PERRLA Neck: Supple Lungs: Clear to Auscultation, Normal Air Movement Heart: Normal S1, Normal S2, Other (irregularly irregular) Abdomen: Soft, No Tenderness Extremities: No Edema Skin: No Rashes, No Significant Lesion Neuro: Normal Speech Psych/Mental Status: Mental Status NL, Mood NL Results Lab Laboratory Tests 01/02/22 14:42 01/03/22 05:06 A/P-Cardiology Admission Diagnosis Syncope Anemia Atrial fibrillation, persistent Hypertension Assessment/Plan Syncope, probably secondary to severe anemia. Continue to monitor blood pressure, transfuse and monitor H&H Anemia, most probably GI bleed. Patient is maintained on Xarelto as an outpatient. Currently on hold and continue transfusion. Status post upper endoscopy done by Dr. Main on January 01, 2022 reported as esophageal varices and a small peptic ulcer disease. Managed by medical team Atrial fibrillation, probably persistent or permanent, rate is controlled. Continue to monitor closely [id number] score 3, was on Xarelto as an outpatient. Unable to tolerate Xarelto or any anticoagulation due to severe anemia Hypertension, continue to monitor. Metabolic acidosis, probably secondary to hypotension and anemia Acute renal insufficiency. improving. Monitor renal function Supervisory-Addendum Brief Supervisory Addendum Participated in pt care: history, MDM, physical Personally performed: exam, history, MDM Care discussed with: ZAKIA Results interpretation: Verified all documentation Notes: Patient was seen and evaluated with Vickie, examination performed, management plan was discussed, agree with the current scribed note, I made few changes to the note using Italic font Patient was seen at bedside, sitting comfortably, feeling better Denied any chest pain Continue to monitor H&H. Okay for discharge from cardiology standpoint Cannot tolerate aggressive anticoagulation at this time. VICKIE CARDONA January 03, 2022 10:21 CARMELA MARTELL MD January 03, 2022 13:19
--- NOTE | 2022-01-03 10:34 | Physical Therapy Daily Note ---
PT Daily Note-Current Subjective Patient was in bed upon entering and consented to treatment. Pain Location: No Pain Reported Mental Status Patient Orientation: Person, Place, Situation Attachments: IV BP cuff SpO2 monitor Transfers SCALE: Activities may be completed with or without assistive devices. 3-Cuqfbnpewp-wvfcziy completes the activity by him/herself with no assistance from a helper. 5-Set-up or Clean-up Assistance-helper sets up or cleans up; patient completes activity. [place] assists only prior to or following the activity. 4-Supervision or Touching Assistance-helper provides verbal cues and/or touching/steadying and/or contact guard assistance as patient completes activity. Assistance may be provided throughout the activity or intermittently. 3-Partial/Moderate Assistance-helper does LESS THAN HALF the effort. [place] lifts, holds or supports trunk or limbs, but provides less than half the effort. 2-Substantial/Maximal Assistance-helper does MORE THAN HALF the effort. [place] lifts or holds trunk or limbs and provides more than half the effort. 2-Slxtqjhct-yozcgs does ALL the effort. Patient does none of the effort to complete the activity. Or, the assistance of 2 or more helpers is required for the patient to complete the activity. If activity was not attempted, code reason: 7-Patient Refused. 9-Not Applicable-not attempted and the patient did not perform the activity before the current illness, exacerbation or injury. 10-Not Attempted due to Environmental Limitations-(lack of equipment, weather restraints, etc.). 88-Not Attempted due to Medical Conditions or Safety Concerns. Lying to Sitting/Side of Bed(Q: 3 Sit to Stand (QC): 3 Chair/Mag-xp-Nvxbw Xfer(QC): 3 Weight Bearing Right Lower Extremity: Right Full Weight Bearing Left Lower Extremity: Left Full Weight Bearing Gait Training Does the Patient Walk?: Yes Distance: 15' Walk 10 feet (QC): 3 Gait Assistive Device: FWW Short slow steps. Walker tended to be incorrectly positioned and needed VC. Wheelchair Training Does the Pt Use a Wheelchair?: No Type of Wheelchair: N/A Exercises Seated Therapy Exercises: Ankle pumps, Long arc quads Seated Reps: 20 Treatments ambulation, transfers, LE strengthening. Assessment Current Status: Fair Progress Patient needed mod assist for bed transfers, and min assist during ambulation. Patient was left in chair with call light, tray, and all needs met. PT Care Home Goals Study Assistant Goals PT Study Assistant Goals Time Frame: January 13, 2022 Roll Left & Right (QC): 6 Sit to Lying (QC): 6 Lying-Sitting on Side/Bed(QC): 6 Sit to Stand (QC): 4 Chair/Zee-bw-Nlvwr Xfer(QC): 4 Toilet Transfer (QC): 4 Walk 10 feet (QC): 4 Walk 50ft with 2 Turns (QC): 4 Walk 150 ft (QC): 4 PT Plan Problem List Problem List: Activity Tolerance, Functional Strength, Safety, Balance, Gait, Transfer, Bed Mobility, ROM Treatment/Plan Treatment Plan: Continue Plan of Care Treatment Plan: Bed Mobility, Education, Functional Activity [place], Functional Strength, Gait, Safety, Therapeutic Exercise, Transfers Treatment Duration: January 13, 2022 Frequency: 6 times per week Estimated Hrs Per Day: .25 hour per day Safety Risks/Education Patient Education: Gait Training, Transfer Techniques, Correct Positioning, Safety Issues Teaching Recipient: Patient Teaching Methods: Discussion Response to Teaching: Verbalize Understanding, Reinforcement Needed Time/GCodes Time In: 1004 Time Out: 1019 Total Billed Treatment Time: 15 Total Billed Treatment 1 visit FA 15min YISSEL MONDRAGON PT January 03, 2022 10:34
--- NOTE | 2022-01-03 10:43 | Occupational Ther Daily Note ---
OT Current Status-Daily Note Subjective Pt alert, lying in bed. Pt agrees to therapy. No c/o pain at this time. Monitoring O2 levels, staying at 92% and above throughout session. Mental Status/Objective Patient Orientation: Person, Place, Time, Situation Attachments: De Oliveira Catheter, IV ADL-Treatment Supine to EOB mod to max A. Min A for sit to stand from higher surface and verbal cues for hand placement. Pt able to stand with CGA and cleanse buttocks without support of FWW. Pt then ambulated around room to recliner using FWW, CGA. Pt then declined oral care. Able to demonstrate AROM with B UE to comb hair. After session, pt sitting in recliner with call light/phone in reach. All needs met in room. Therapy Code Descriptions/Definitions Functional [place] Measure: 0=Not Assessed/NA 4=Minimal Assistance 1=Total Assistance 5=Supervision or Setup 2=Maximal Assistance 6=Modified [place] 3=Moderate Assistance 7=Complete IndependenceSCALE: Activities may be completed with or without assistive devices. 4-Fgogqzpivb-hpbcuiw completes the activity by him/herself with no assistance from a helper. 5-Set-up or Clean-up Assistance-helper sets up or cleans up; patient completes activity. [place] assists only prior to or following the activity. 4-Supervision or Touching Assistance-helper provides verbal cues and/or touching/steadying and/or contact guard assistance as patient completes activity. Assistance may be provided throughout the activity or intermittently. 3-Partial/Moderate Assistance-helper does LESS THAN HALF the effort. [place] l ifts, holds or supports trunk or limbs, but provides less than half the effort. 2-Substantial/Maximal Assistance-helper does MORE THAN HALF the effort. [place] lifts or holds trunk or limbs and provides more than half the effort. 9-Ahvoiunuq-tjhzzc does ALL the effort. Patient does none of the effort to complete the activity. Or, the assistance of 2 or more helpers is required for t he patient to complete the activity. If activity was not attempted, code reason: 7-Patient Refused. 9-Not Applicable-not attempted and the patient did not perform the activity before the current illness, exacerbation or injury. 10-Not Attempted due to Environmental Limitations-(lack of equipment, weather restraints, etc.). 88-Not Attempted due to Medical Conditions or Safety Concerns. Oral Hygiene (QC): 7 Toileting Hygiene (QC): 4 OT [facility] Goals Convention Worker Goals Time Frame: January 16, 2022 Oral Hygiene (QC): 5 Toileting Hygiene (QC): 4 Shower/Bathe Self (QC): 4 Upper Body Dressing (QC): 4 Lower Body Dressing (QC): 4 On/Off Footwear (QC): 4 1=Demonstrate adherence to instructed precautions during ADL tasks. 2=Patient will verbalize/demonstrate understanding of assistive devices/modifica tions for ADL. 3=Patient will improve strength/tolerance for activity to enable patient to perform ADL's. OT Education/Plan Problem List/Assessment Assessment: Decreased Activ Tolerance, Decreased Safety Aware, Impaired Self- Care Skills Discharge Recommendations Plan/Recommendations: Continue POC Treatment Plan/Plan of Care Patient would benefit from OT for education, treatment and training to promote independence in ADL's, mobility, safety and/or upper extremity function for ADL's. Plan of Care: ADL Retraining, Functional Mobility, Group Exercise/Act as Ind, UE Funct Exercise/Act Treatment Duration: January 16, 2022 Frequency: 3 times per week (3-5x/week) Estimated Hrs Per Day: .25 hour per day Rehab Potential: Fair Time/GCodes Start Time: 10:08 Stop Time: 10:23 Total Time Billed (hr/min): 15 Billed Treatment Time 1 visit-ADL 1 (15 min) SHAHEED ZAMBRANO January 03, 2022 10:43
[2022-01-03 15:01] LABS: HEMOGLOBIN 7.9 g/dL (13.3-17.7)
[2022-01-04 00:15] VITALS: BP 118/65
[2022-01-04] MEDS: NS IV 1000 ML 1,000 ML IV SCH (00:15)
[2022-01-04 04:05] VITALS: BP 146/70
[2022-01-04] MEDS: BETHANECHOL 25 MG (URECHOLINE) TAB PO SCH ×2 (05:34→11:38)
[2022-01-04] MEDS: CYANOCOBALAMIN 1,000 MCG (VITAMIN B-12) TABLET PO SCH (05:34)
--- NOTE | 2022-01-04 05:59 | Progress Note - Hospitalist ---
Subjective HPI/CC On Admission Date Seen by Provider: January 04, 2022 Time Seen by Provider: 11:00 Chief complaint: Symptomatic anemia History of present illness: This is an 86-year-old white male with a history of dementia and atrial fibrillation on anticoagulation who presented with shortness of breath and weakness and found to have hemoglobin of 4.9. His Hemoccult was negative. Dr. Carpenter and Dr. LUNA were consulted due to suspicion of GI bleed. He received 2 units of packed red blood cells and his hemoglobin is still low so we will give him another unit. He will have a scope tomorrow. Objective Exam Vital Signs Vital Signs Date Time Temp Pulse Resp B/P (MAP) Pulse Ox O2 Delivery O2 Flow Rate FiO2 01/04/22 11:31 37.0 86 20 142/67 (92) 95 Room Air 01/04/22 10:43 0.00 12/30/21 23:01 21 Capillary Refill : Less Than 3 Seconds Results/Procedures Lab Laboratory Tests 01/03/22 14:55 01/04/22 05:40 Patient resulted labs reviewed. Assessment/Plan Assessment and Plan Assess & Plan/Chief Complaint Assessment: Symptomatic anemia status post 5 units of blood Severe iron deficiency Vitamin B12 deficiency Suspected GI bleed Anticoagulation on Xarelto Atrial fibrillation Dementia Urinary retention status post De Oliveira catheter discontinuation Plan: Transfuse Scope tomorrow Appreciate Dr. LUNA Appreciate Dr. Carpenter 01/01/2022: Supportive care Likely will need 1 more unit of blood after scope Given iron and B12 01/02/2022: Supportive care IV iron 01/03/2022: Urinary retention management Monitor hemoglobin Supportive care Diagnosis/Problems Diagnosis/Problems (1) Acute anemia Status: Acute (2) Dizzy spells Status: Acute (3) Short of breath on exertion Status: Acute (4) Dementia Status: Acute Clinical Quality Measures DVT/VTE Risk/Contraindication: Contraindications-Pharm: Other *list below* Other: ALTHEA Orr DO January 04, 2022 05:59
[2022-01-04 06:14] LABS: BASOPHILS % (AUTO) 0 % (0-10); EOSINOPHILS # (AUTO) 0.1 10^3/uL (0.0-0.3); EOSINOPHILS % (AUTO) 2 % (0-10); HEMATOCRIT 26 % (40-54); HEMOGLOBIN 7.9 g/dL (13.3-17.7); LYMPHOCYTES # (AUTO) 0.8 10^3/uL (1.0-4.0); LYMPHOCYTES % (AUTO) 11 % (12-44); MEAN CORPUSCULAR HEMOGLOBIN 26 pg (25-34); MEAN CORPUSCULAR HGB CONC 31 g/dL (32-36); MEAN CORPUSCULAR VOLUME 85 fL (80-99); MEAN PLATELET VOLUME 11.6 fL (9.0-12.2); MONOCYTES # (AUTO) 0.9 10^3/uL (0.0-1.0); MONOCYTES % (AUTO) 14 % (0-12); NEUTROPHILS # (AUTO) 4.9 10^3/uL (1.8-7.8); NEUTROPHILS % (AUTO) 73 % (42-75); PLATELET COUNT 141 10^3/uL (130-400); WHITE BLOOD COUNT 6.8 10^3/uL (4.3-11.0)
[2022-01-04 06:28] LABS: INR 1.2 (0.8-1.4); PROTHROMBIN TIME PATIENT 15.7 SEC (12.2-14.7)
[2022-01-04 06:35] LABS: ALBUMIN 2.9 GM/DL (3.2-4.5); POTASSIUM 3.7 MMOL/L (3.6-5.0)
[2022-01-04 06:37] LABS: CALCIUM 7.9 MG/DL (8.5-10.1)
[2022-01-04 06:38] LABS: TOTAL PROTEIN 5.2 GM/DL (6.4-8.2)
[2022-01-04 06:40] LABS: BILIRUBIN,TOTAL 2.6 MG/DL (0.1-1.0)
[2022-01-04 06:41] LABS: CREATININE SERUM 0.95 MG/DL (0.60-1.30)
--- NOTE | 2022-01-04 07:26 | Cardiology Progress Note ---
Subjective Date Seen by Provider: January 04, 2022 Time Seen by Provider: 07:26 Subjective/Events-last exam Patient was seen at bedside laying down in bed, feeling better. No new complain Review of Systems General: No Chills, No Night Sweats; Fatigue, Malaise; No Appetite, No Other HEENT: No Head Aches, No Visual Changes, No Eye Pain, No Ear Pain, No Dysphasia, No Sinus Congestion, No Post Nasal Drip, No Sore Throat, No Other Pulmonary: No Dyspnea, No Cough, No Pleuritic Chest Pain, No Other Cardiovascular: No: Chest Pain, Palpitations, Orthopnea, Paroxysmal Noc. Dyspnea, Edema, Lt Headedness, Other Objective-Cardiology Exam Last Set of Vital Signs Vital Signs 12/30/21 01/02/22 01/04/22 23:01 07:28 04:05 Temp 37.4 Pulse 77 Resp 18 B/P (MAP) 146/70 (95) Pulse Ox 95 O2 Delivery Room Air O2 Flow Rate 0.00 FiO2 21 I&O Intake and Output 01/04/22 00:00 Intake Total 900 ml Output Total 650 ml Balance 250 ml Intake Oral 900 ml Output Urine Total 650 ml Bladder Scan Volume Amount 218 ml # Voids 1 General: Alert, Oriented X3, Cooperative HEENT: Atraumatic, PERRLA Neck: Supple Lungs: Clear to Auscultation, Normal Air Movement Heart: Normal S1, Normal S2, Other (irregularly irregular) Abdomen: Soft, No Tenderness Extremities: No Edema Skin: No Rashes, No Significant Lesion Neuro: Normal Speech Psych/Mental Status: Mental Status NL, Mood NL Results Lab Laboratory Tests 01/03/22 14:55 01/04/22 05:40 A/P-Cardiology Admission Diagnosis Syncope Anemia Atrial fibrillation, persistent Hypertension Assessment/Plan Syncope, probably secondary to severe anemia. Continue to monitor blood pressure, transfuse and monitor H&H Anemia, most probably GI bleed. Patient is maintained on Xarelto as an outpatient. Currently on hold and continue transfusion. Status post upper endoscopy done by Dr. Main on January 01, 2022 reported as esophageal varices and a small peptic ulcer disease. Managed by medical team Atrial fibrillation, probably persistent or permanent, rate is controlled. Continue to monitor closely [id number] score 3, was on Xarelto as an outpatient. Unable to tolerate Xarelto or any anticoagulation due to severe anemia Hypertension, continue to monitor. Metabolic acidosis, probably secondary to hypotension and anemia Acute renal insufficiency. improving. Monitor renal function CARMELA MARTELL MD January 04, 2022 07:26
[2022-01-04 07:27] VITALS: BP 125/69
[2022-01-04] MEDS: PANTOPRAZOLE 40 MG (PROTONIX) VIAL IV SCH (08:05)
[2022-01-04] MEDS: KCL 20 MEQ TAB (K-DUR) PO SCH (08:05)
[2022-01-04] MEDS: DOCUSATE SODIUM 100 MG (COLACE) CAP PO SCH (08:05)
[2022-01-04] MEDS ORDERED: TAMSULOSIN 0.4 MG (FLOMAX) CAP PO SCH (09:00)
--- NOTE | 2022-01-04 10:33 | Physical Therapy Daily Note ---
PT Daily Note-Current Subjective Patient agrees to PT. Mental Status Patient Orientation: Person, Time, Situation Attachments: IV Transfers SCALE: Activities may be completed with or without assistive devices. 1-Xvysvukdqc-hyndyxb completes the activity by him/herself with no assistance from a helper. 5-Set-up or Clean-up Assistance-helper sets up or cleans up; patient completes activity. [place] assists only prior to or following the activity. 4-Supervision or Touching Assistance-helper provides verbal cues and/or touching/steadying and/or contact guard assistance as patient completes activity. Assistance may be provided throughout the activity or intermittently. 3-Partial/Moderate Assistance-helper does LESS THAN HALF the effort. [place] lifts, holds or supports trunk or limbs, but provides less than half the effort. 2-Substantial/Maximal Assistance-helper does MORE THAN HALF the effort. [place] lifts or holds trunk or limbs and provides more than half the effort. 4-Npkwrqswn-fyrfix does ALL the effort. Patient does none of the effort to complete the activity. Or, the assistance of 2 or more helpers is required for the patient to complete the activity. If activity was not attempted, code reason: 7-Patient Refused. 9-Not Applicable-not attempted and the patient did not perform the activity before the current illness, exacerbation or injury. 10-Not Attempted due to Environmental Limitations-(lack of equipment, weather restraints, etc.). 88-Not Attempted due to Medical Conditions or Safety Concerns. Lying to Sitting/Side of Bed(Q: 4 Sit to Stand (QC): 4 Chair/Nqv-gh-Tbfmw Xfer(QC): 4 Weight Bearing Right Lower Extremity: Right Full Weight Bearing Left Lower Extremity: Left Full Weight Bearing Gait Training Distance: 200' Walk 10 feet (QC): 4 Walk 50 ft with 2 Turns(QC): 4 Walk 150 ft (QC): 4 Gait Assistive Device: FWW VC's for FWW use and body placement in FWW (patient displayed extended UE's with FWW use) Assessment Patient up in recliner with needs met. Patient tolerates minimal activity. PT Purchasing Officer Goals Purchasing Officer Goals PT Purchasing Officer Goals Time Frame: January 13, 2022 Roll Left & Right (QC): 6 Sit to Lying (QC): 6 Lying-Sitting on Side/Bed(QC): 6 Sit to Stand (QC): 4 Chair/Xgf-xi-Pybut Xfer(QC): 4 Toilet Transfer (QC): 4 Walk 10 feet (QC): 4 Walk 50ft with 2 Turns (QC): 4 Walk 150 ft (QC): 4 PT Plan Treatment/Plan Treatment Plan: Continue Plan of Care Treatment Plan: Bed Mobility, Education, Functional Activity [place], Functional Strength, Gait, Safety, Therapeutic Exercise, Transfers Treatment Duration: January 13, 2022 Frequency: 6 times per week Estimated Hrs Per Day: .25 hour per day Time/GCodes Time In: 950 Time Out: 1006 Total Billed Treatment Time: 16 Total Billed Treatment 1 visit GT 16 min AVELINA CHAVEZ PT January 04, 2022 10:33
[2022-01-04 11:31] VITALS: BP 142/67
[2022-01-04] MEDS ORDERED: PANT40TA2 PO (12:17)
[2022-01-04] MEDS ORDERED: BETH25TA2 PO (12:17)
[2022-01-04] MEDS ORDERED: CYAN-41 PO (12:17)
[2022-01-04] MEDS ORDERED: TMSL.4C PO (12:17)
--- NOTE | 2022-01-04 12:18 | D/C HH Face to Face Order ---
D/C HH Face to Face Orders Reconcile Patient Problems Problems Reviewed?: Yes Instructions for Patient hh Patient Instructions/FollowUp: pcp 1 week Physician to follow Patient: pcp Discharge Diet for Home: No Restrictions Patient Problems: gib Patient Data-Allergies,Ht & Wt Patient Allergies: Coded Allergies: No Known Drug Allergies (Unverified , 08/20/14) Height (Feet): 6 Weight (Pounds): 245 Home Health Need/Face to Face Date of Face to Face: January 04, 2022 Clinical Findings: Generalized weakness and fatigue, Instability, Muscle weakness I have seen Pt ddrz-jw-iexq: Yes Discharged To: Home Diagnosis/Conditions: debility Patient is Homebound due to: CognItive deficits, Reji fall risk due to instabilty, Muscle weakness Homebound Status Due to the above stated illness, injury or surgical procedure (medical condition or diagnosis) and associated clinical findings, the patient is homebound because of his/her inability to leave home except with aid of a supportive device and/or person AND leaving the home requires a considerable and taxing effort or is medically contraindicated. Pt req the following assistanc: [facility] Nursing Orders Home Health Services Order: Nursing Services, Housing Assistant Property Manager-Evaluate & Treat, Physical Therapy-Evaluate & Treat Home Health Infusion Therapy Line Start Date: Dec 30, 2021 Certify Stmt I certify that this patient is under my care and that I, a nurse practitioner or a physician; a auction assistant working with me, had a face to face encounter that - meets the physician face to face encounter requirements with this patient as dated. ALTHEA VALENTINE DO January 04, 2022 12:18
--- NOTE | 2022-01-04 12:19 | Discharge Summary ---
Discharge Summary Hospital Course Was the Problem List Reviewed?: Yes Problems/Dx: (1) Acute anemia Status: Acute (2) Dizzy spells Status: Acute (3) Short of breath on exertion Status: Acute (4) Dementia Status: Acute Hospital Course Date of Admission: Dec 30, 2021 at 21:39 Admission Diagnosis : Family Physician/Provider: Yg Collins MD Date of Discharge: 01/04/22 Discharge Diagnosis: Severe symptomatic anemia, GI bleed, gastritis on EGD, dementia, urinary retention now resolved Hospital Course: Pt had an uneventful 6 day hospital course although lengthy. He did receive a total of 5 units of blood for GI bleed. Xarelto was held. EGD showed gastritis. No active bleeding but he was placed on Protonix 40 mg BID. He was ultimately able to be discharged in improved condition on home health. He will have close follow up with PCP, checking labs in 5 days of CBC and CMP. Labs and Pending Lab Test: Laboratory Tests 01/03/22 14:55: Hemoglobin 7.9L, Hematocrit 25L 01/04/22 05:40: Hemoglobin 7.9L, Hematocrit 26L, White Blood Count 6.8, Red Blood Count 3.00L, Mean Corpuscular Volume 85, Mean Corpuscular Hemoglobin 26, Mean Corpuscular Hemoglobin Concent 31L, Red Cell Distribution Width 18.5H, Platelet Count 141, Mean Platelet Volume 11.6, Immature Granulocyte % (Auto) 0, Neutrophils (%) (Auto) 73, Lymphocytes (%) (Auto) 11L, Monocytes (%) (Auto) 14H, Eosinophils (%) (Auto) 2, Basophils (%) (Auto) 0, Neutrophils # (Auto) 4.9, Lymphocytes # (Auto) 0.8L, Monocytes # (Auto) 0.9, Eosinophils # (Auto) 0.1, Basophils # (Auto) 0.0, Immature Granulocyte # (Auto) 0.0, Prothrombin Time 15.7H, INR Comment 1.2, Sodium Level 138, Potassium Level 3.7, Chloride Level 108H, Carbon Dioxide Level 19L, Anion Gap 11, Blood Urea Nitrogen 12, Creatinine 0.95, Estimat Glomerular Filtration Rate 77, BUN/Creatinine Ratio 13, Glucose Level 112H, Calcium Level 7.9L, Corrected Calcium 8.8, Total Bilirubin 2.6H, Aspartate Amino Transf (AST/SGOT) 17, Alanine Aminotransferase (ALT/SGPT) 12, Alkaline Phosphatase 83, Total Protein 5.2L, Albumin 2.9L Microbiology 01/01/22 MRSA Screen - Final, Complete MRSA not isolated 12/30/21 Blood Culture - Preliminary, Resulted No growth Home Meds Active Protonix (Pantoprazole Sodium) 40 Mg Tablet.dr 40 Mg PO DAILY Vitamin B-12 (Cyanocobalamin (Vitamin B-12)) 1,000 Mcg Tablet 1,000 Mcg PO DAILY@0700 Flomax (Tamsulosin HCl) 0.4 Mg Cap 0.4 Mg PO BID Bethanechol Chloride 25 Mg Tablet 25 Mg PO ACHS Reported Fish Oil 1,000 mg Softgel ([place]-3/Dha/Epa/Fish Oil) 1,000 Mg (120 Mg-180 Mg) Capsule 1,000 Mg PO BID Xarelto (Rivaroxaban) 20 Mg Tablet 20 Mg PO DAILY Atorvastatin Calcium 10 Mg Tablet 10 Mg PO DAILY Gabapentin 100 Mg Capsule 200 Mg PO HS TAKES 2 (100MG) CAPS Lisinopril 10 Mg Tablet 10 Mg PO DAILY Metoprolol Succinate 100 Mg Tab.er.24h 100 Mg PO BID Assessment/Pt Instructions PCP in 1 week Discharge Planning: <30 minutes discharge planning Discharge Instructions Discharge Diet: No Restrictions Activity as Tolerated: Yes Discharge Physical Examination Vital Signs Vital Signs Date Time Temp Pulse Resp B/P (MAP) Pulse Ox O2 Delivery O2 Flow Rate FiO2 01/04/22 11:31 37.0 86 20 142/67 (92) 95 Room Air 01/04/22 10:43 0.00 12/30/21 23:01 21 General Appearance: No Apparent Distress, WD/WN, Chronically ill Respiratory: Lungs Clear Cardiovascular: Regular Rate, Rhythm Neurologic/Psychiatric: Alert, Oriented x3, Disoriented Allergies: Coded Allergies: No Known Drug Allergies (Unverified , 08/20/14) Discharge Summary Date of Admission Dec 30, 2021 at 21:39 Date of Discharge Discharge Date: January 04, 2022 Admission Diagnosis Assessment: Symptomatic anemia Severe iron deficiency Vitamin B12 deficiency Suspected GI bleed Anticoagulation on Xarelto Atrial fibrillation Dementia Plan: Transfuse Scope tomorrow Appreciate Dr. LUNA Appreciate Dr. Carpenter Discharge Diagnosis Assessment: Symptomatic anemia status post 5 units of blood Severe iron deficiency Vitamin B12 deficiency Suspected GI bleed Anticoagulation on Xarelto Atrial fibrillation Dementia Urinary retention status post De Oliveira catheter discontinuation Plan: Transfuse Scope tomorrow Appreciate Dr. LUNA Appreciate Dr. Carpenter 01/01/2022: Supportive care Likely will need 1 more unit of blood after scope Given iron and B12 01/02/2022: Supportive care IV iron 01/03/2022: Urinary retention management Monitor hemoglobin Supportive care (1) Acute anemia Status: Acute (2) Dizzy spells Status: Acute (3) Short of breath on exertion Status: Acute (4) Dementia Status: Acute Clinical Quality Measures DVT/VTE Risk/Contraindication: Contraindications-Pharm: Other *list below* Other: ALTHEA Orr DO January 04, 2022 12:19
--- NOTE | 2022-01-04 12:57 | Occupational Ther Daily Note ---
OT Current Status-Daily Note Subjective Pt alert, lying in bed. Pt agrees to therapy. C/o of R shldr pain with AROM from old injury, per pt. Mental Status/Objective Patient Orientation: Person, Place, Time, Situation Attachments: IV ADL-Treatment Therapy Code Descriptions/Definitions Functional [place] Measure: 0=Not Assessed/NA 4=Minimal Assistance 1=Total Assistance 5=Supervision or Setup 2=Maximal Assistance 6=Modified [place] 3=Moderate Assistance 7=Complete IndependenceSCALE: Activities may be completed with or without assistive devices. 1-Uhasgnkijz-prxjnwv completes the activity by him/herself with no assistance from a helper. 5-Set-up or Clean-up Assistance-helper sets up or cleans up; patient completes activity. [place] assists only prior to or following the activity. 4-Supervision or Touching Assistance-helper provides verbal cues and/or touching/steadying and/or contact guard assistance as patient completes ac tivity. Assistance may be provided throughout the activity or intermittently. 3-Partial/Moderate Assistance-helper does LESS THAN HALF the effort. [place] lifts, holds or supports trunk or limbs, but provides less than half the effort. 2-Substantial/Maximal Assistance-helper does MORE THAN HALF the effort. [place] lifts or holds trunk or limbs and provides more than half the effort. 5-Ltiyadxzz-utsyzv does ALL the effort. Patient does none of the effort to complete the activity. Or, the assistance of 2 or more helpers is required for the patient to complete the activity. If activity was not attempted, code reason: 7-Patient Refused. 9-Not Applicable-not attempted and the patient did not perform the activity before the current illness, exacerbation or injury. 10-Not Attempted due to Environmental Limitations-(lack of equipment, weather restraints, etc.). 88-Not Attempted due to Medical Conditions or Safety Concerns. Other Treatment Pt required AAROM with R shldr due to increased pain, 2 sets 10 reps. AROM with L shldr, minimal pain from old injury per pt, 2 sets 10 reps. Bicep curls 1 set 10 reps. After therapy, pt lying in bed with call light/phone in reach. All needs met in room. OT Forensic Science Examiner Goals Forensic Science Examiner Goals Time Frame: January 16, 2022 Oral Hygiene (QC): 5 Toileting Hygiene (QC): 4 Shower/Bathe Self (QC): 4 Upper Body Dressing (QC): 4 Lower Body Dressing (QC): 4 On/Off Footwear (QC): 4 1=Demonstrate adherence to instructed precautions during ADL tasks. 2=Patient will verbalize/demonstrate understanding of assistive devices/modifications for ADL. 3=Patient will improve strength/tolerance for activity to enable patient to perform ADL's. OT Education/Plan Problem List/Assessment Assessment: Decreased Activ Tolerance, Decreased UE Strength, Impaired I ADL's, Restricted Funct UE ROM Discharge Recommendations Plan/Recommendations: Continue POC Treatment Plan/Plan of Care Patient would benefit from OT for education, treatment and training to promote independence in ADL's, mobility, safety and/or upper extremity function for ADL's. Plan of Care: ADL Retraining, Functional Mobility, Group Exercise/Act as Ind, UE Funct Exercise/Act Treatment Duration: January 16, 2022 Frequency: 3 times per week (3-5x/week) Estimated Hrs Per Day: .25 hour per day Rehab Potential: Fair Time/GCodes Start Time: 12:35 Stop Time: 12:50 Total Time Billed (hr/min): 15 Billed Treatment Time 1 visit-EX 1 (15 min) SHAHEED ZAMBRANO January 04, 2022 12:57
[2022-01-04 15:29] VITALS: BP 130/66
== END 2022-01-04 17:05 | disposition home or self-care (01) | DRG 813 ==
LOC: EDUNIT# 19:05 → ER FS 19:06 → ICU 21:39 → CSD 12-31 07:04 → 4TH 12-31 14:30
PROVIDERS: ADMIT Internal Medicine; ATTEND Internal Medicine
PROC: 0DB68ZX Excision of Stomach, Via Natural or Artificial Opening Endoscopic, Diagnostic (ICD-10-PCS; 2022-01-01)
PROC: 0DB48ZX Excision of Esophagogastric Junction, Via Natural or Artificial Opening Endoscopic, Diagnostic (ICD-10-PCS; principal; 2022-01-01 16:22)
DX: D68.32 Hemorrhagic disorder due to extrinsic circulating anticoagulants (principal); E87.2 Acidosis; I85.00 Esophageal varices without bleeding; I48.19 Other persistent atrial fibrillation; F03.90 Unspecified dementia, unspecified severity, without behavioral disturbance, psychotic disturbance, mood disturbance, and anxiety; I10 Essential (primary) hypertension; Z86.73 Personal history of transient ischemic attack (TIA), and cerebral infarction without residual deficits; Z79.01 Long term (current) use of anticoagulants; E53.8 Deficiency of other specified B group vitamins; E61.1 Iron deficiency; M19.90 Unspecified osteoarthritis, unspecified site; R33.9 Retention of urine, unspecified; R06.02 Shortness of breath; R42 Dizziness and giddiness; K21.00 Gastro-esophageal reflux disease with esophagitis, without bleeding; K44.9 Diaphragmatic hernia without obstruction or gangrene; K29.70 Gastritis, unspecified, without bleeding; Z87.891 Personal history of nicotine dependence; Z20.822 Contact with and (suspected) exposure to COVID-19; R55 Syncope and collapse; N28.9 Disorder of kidney and ureter, unspecified
CPT/HCPCS: 36415; 70450; 71045; 80053; 82274; 82607; 82728; 83540; 83550; 83605; 83735; 83880; 84484; 85007; 85014; 85018; 85025; 85027; 85610; 85730; 86141; 86850; 86900; 86901; 86920; 87040; 87081; 87636; 87804; 93005; 93041; 94760; 96374